=== PATIENT | male | born 1960 | race Caucasian/White ===

== ENCOUNTER → 2018-02-06 | Outpatient (REF) | payer OTHER ==
[2018-02-06 16:44] LABS: BASO # 0.1 10^3/uL (0.0-0.2); BASO % 0.7 % (0.0-1.0); EOS # 0.2 10^3/uL (0.0-0.50); EOS % 2.6 % (0.0-3.0); HEMOGLOBIN 14.5 g/dl (13.5-17.5); IMMATURE GRANULOCYTE % 0.1 % (0-3.0); LYMPH # 1.9 10^3/uL (1.5-4.5); LYMPH % 25.6 % (24.0-44.0); MEAN CORPUSCULAR HEMOGLOBIN 31.7 pg (27.0-33.0); MEAN CORPUSCULAR HGB CONC 35.4 g/dl (32.0-36.5); MEAN CORPUSCULAR VOLUME 89.7 fl (80.0-96.0); MONO # 0.5 10^3/uL (0.0-0.8); MONO % 6.8 % (0.0-5.0); NEUTROPHILS # 4.7 10^3/uL (1.8-7.7); NEUTROPHILS % 64.2 % (36.0-66.0); PLATELET COUNT, AUTOMATED 215 10^3/uL (150-450); RED BLOOD COUNT 4.57 10^6/uL (4.30-6.10); RED CELL DISTRIBUTION WIDTH 11.9 % (11.5-14.5); WHITE BLOOD COUNT 7.3 10^3/uL (4.0-10.0)
[2018-02-06 17:05] LABS: ALBUMIN/GLOBULIN RATIO 1.43 (1.00-1.93); ALKALINE PHOSPHATASE 61 U/L (45-117); ALT/SGPT 49 U/L (12-78); ANION GAP 5 MEQ/L (8-16); AST/SGOT 24 U/L (7-37); BILIRUBIN,TOTAL 0.6 MG/DL (0.2-1.0); BLOOD UREA NITROGEN 18 MG/DL (7-18); CALCIUM LEVEL 9.2 MG/DL (8.5-10.1); CARBON DIOXIDE LEVEL 32 MEQ/L (21-32); CHLORIDE LEVEL 106 MEQ/L (98-107); CHOLESTEROL LEVEL 155 MG/DL (<200); CHOLESTEROL RISK RATIO 3.604 (<5); CREATININE FOR GFR 0.95 MG/DL (0.70-1.30); GLOMERULAR FILTRATION RATE > 60.0 (>56); GLUCOSE, FASTING 104 MG/DL (70-100); HDL CHOLESTEROL 43 MG/DL (>40); LDL CHOLESTEROL 66.4 MG/DL (<100); NON-HDL-C 112 MG/DL; POTASSIUM SERUM 4.2 MEQ/L (3.5-5.1); SODIUM LEVEL 143 MEQ/L (136-145); TOTAL PROTEIN 6.8 GM/DL (6.4-8.2); TRIGLYCERIDES LEVEL 228 MG/DL (<150)
[2018-02-06 17:43] LABS: ESTIMATED AVERAGE GLUCOSE 123 MG/DL (60-110); HEMOGLOBIN A1c 5.9 %
[2018-02-09 00:06] LABS: Lyme Disease IgG/IgM Antibodie <0.91 ISR (0.00-0.90); Lyme Disease IgM Ab Quantitati <0.80 index (0.00-0.79)
== END ==
LOC: M SFHCPLAZ 14:58
DX: S30.860A Insect bite (nonvenomous) of lower back and pelvis, initial encounter (principal); I10 Essential (primary) hypertension; E66.9 Obesity, unspecified; W57.XXXA Bitten or stung by nonvenomous insect and other nonvenomous arthropods, initial encounter; Y92.89 Other specified places as the place of occurrence of the external cause
CPT/HCPCS: 80053

== ENCOUNTER → 2018-02-08 | Outpatient (REF) | payer SELFPAY ==
[2018-02-08 17:47] LABS: CHOLESTEROL LEVEL 173 MG/DL (<200); CPK CREATINE PHOSPHOKINASE 139 U/L (39-308); HDL CHOLESTEROL 49 MG/DL (>40); LDL CHOLESTEROL 89.4 MG/DL (<100); NON-HDL-C 124 MG/DL; TRIGLYCERIDES LEVEL 173 MG/DL (<150); TROPONIN I < 0.02 NG/ML (< 0.10)
[2018-02-08 17:48] LABS: CK-MB VALUE MASS 1.4 NG/ML (<3.6)
[2018-02-11 10:19] LABS: HEPATITIS C VIRUS ABY INDEX < 0.0 INDEX (<0.8)
== END ==
LOC: M LABDRAWP 16:56
DX: Z11.59 Encounter for screening for other viral diseases (principal); I10 Essential (primary) hypertension; Z13.220 Encounter for screening for lipoid disorders
CPT/HCPCS: 82550

== ENCOUNTER → 2018-02-14 | Outpatient (CLI) | payer SELFPAY | LOC: M RAD 06:34 | DX: I10 Essential (primary) hypertension (principal) ==

== ENCOUNTER → 2018-02-15 | Outpatient (REF) | payer SELFPAY, OTHER ==
[2018-02-15 20:37] LABS: INR 0.92; PARTIAL THROMBOPLASTIN TIME 29.3 SECONDS (26.8-37.9); PROTHROMBIN TIME 12.4 SECONDS (12.4-14.5)
== END ==
LOC: M SFHCPLAZ 16:51
DX: I25.118 Atherosclerotic heart disease of native coronary artery with other forms of angina pectoris (principal)

== ENCOUNTER → 2018-09-30 | Outpatient (REF) | payer OTHER, SELFPAY ==
[2018-09-30 18:51] LABS: HEMOGLOBIN A1c 6.2 %
[2018-09-30 19:03] LABS: ALBUMIN 4.1 GM/DL (3.2-5.2); ALT/SGPT 65 U/L (12-78); BILIRUBIN,TOTAL 0.7 MG/DL (0.2-1.0); BLOOD UREA NITROGEN 16 MG/DL (7-18); CALCIUM LEVEL 9.2 MG/DL (8.5-10.1); CARBON DIOXIDE LEVEL 31 MEQ/L (21-32); CHLORIDE LEVEL 102 MEQ/L (98-107); CREATININE FOR GFR 1.02 MG/DL (0.70-1.30); GLOMERULAR FILTRATION RATE > 60.0 (>56); GLUCOSE, FASTING 77 MG/DL (70-100); POTASSIUM SERUM 4.5 MEQ/L (3.5-5.1); SODIUM LEVEL 140 MEQ/L (136-145); TOTAL PROTEIN 7.3 GM/DL (6.4-8.2)
== END ==
LOC: M SFHCPLAZ 15:59
PROVIDERS: ATTEND Physician Assistant Medical
DX: R73.01 Impaired fasting glucose (principal)

== ENCOUNTER → 2019-04-24 | Outpatient (REF) | payer OTHER ==
[2019-04-24 11:46] LABS: BASO % 0.5 % (0.0-1.0); EOS # 0.2 10^3/uL (0.0-0.50); EOS % 2.3 % (0.0-3.0); HEMATOCRIT 39.8 % (42.0-52.0); HEMOGLOBIN 13.9 g/dl (13.5-17.5); LYMPH % 27.3 % (24.0-44.0); MEAN CORPUSCULAR HEMOGLOBIN 32.8 pg (27.0-33.0); MEAN CORPUSCULAR HGB CONC 34.9 g/dl (32.0-36.5); MEAN CORPUSCULAR VOLUME 93.9 fl (80.0-96.0); MONO # 0.5 10^3/uL (0.0-0.8); MONO % 6.6 % (0.0-5.0); NEUTROPHILS # 4.6 10^3/uL (1.8-7.7); NEUTROPHILS % 62.9 % (36.0-66.0); PLATELET COUNT, AUTOMATED 202 10^3/uL (150-450); RED BLOOD COUNT 4.24 10^6/uL (4.30-6.10); WHITE BLOOD COUNT 7.3 10^3/uL (4.0-10.0)
[2019-04-24 12:16] LABS: ALBUMIN 3.8 GM/DL (3.2-5.2); ALT/SGPT 57 U/L (12-78); BILIRUBIN,TOTAL 0.5 MG/DL (0.2-1.0); BLOOD UREA NITROGEN 17 MG/DL (7-18); CALCIUM LEVEL 9.2 MG/DL (8.5-10.1); CARBON DIOXIDE LEVEL 30 MEQ/L (21-32); CHLORIDE LEVEL 105 MEQ/L (98-107); CHOLESTEROL LEVEL 166 MG/DL (<200); CHOLESTEROL RISK RATIO 4.256 (<5); CREATININE FOR GFR 1.09 MG/DL (0.70-1.30); FREE T4 0.92 NG/DL (0.76-1.46); GLOMERULAR FILTRATION RATE > 60.0 (>56); GLUCOSE, FASTING 98 MG/DL (70-100); HDL CHOLESTEROL 39 MG/DL (>40); HEMOGLOBIN A1c 6.8 %; LDL CHOLESTEROL 74 MG/DL (<100); NON-HDL-C 127 MG/DL; POTASSIUM SERUM 4.2 MEQ/L (3.5-5.1); SODIUM LEVEL 141 MEQ/L (136-145); TOTAL PROTEIN 6.9 GM/DL (6.4-8.2); TRIGLYCERIDES LEVEL 263 MG/DL (<150)
== END ==
LOC: M SFHCPLAZ 09:55
PROVIDERS: ATTEND Physician Assistant Medical
DX: I10 Essential (primary) hypertension (principal); R73.01 Impaired fasting glucose; Z13.220 Encounter for screening for lipoid disorders; E66.01 Morbid (severe) obesity due to excess calories; Z12.5 Encounter for screening for malignant neoplasm of prostate; Z12.11 Encounter for screening for malignant neoplasm of colon

== ENCOUNTER → 2019-09-01 | Outpatient (REF) | payer OTHER ==
[2019-09-01 10:21] LABS: BASO # 0.1 10^3/uL (0.0-0.2); BASO % 0.9 % (0.0-1.0); EOS # 0.2 10^3/uL (0.0-0.5); EOS % 2.4 % (0.0-3.0); HEMATOCRIT 42.4 % (42.0-52.0); HEMOGLOBIN 14.6 g/dl (13.5-17.5); LYMPH % 25.1 % (24.0-44.0); MEAN CORPUSCULAR HEMOGLOBIN 31.9 pg (27.0-33.0); MEAN CORPUSCULAR HGB CONC 34.4 g/dl (32.0-36.5); MEAN CORPUSCULAR VOLUME 92.8 fl (80.0-96.0); MONO # 0.4 10^3/uL (0.0-0.8); MONO % 5.4 % (0.0-5.0); NEUTROPHILS # 5.3 10^3/uL (1.5-8.5); NEUTROPHILS % 65.7 % (36.0-66.0); PLATELET COUNT, AUTOMATED 224 10^3/uL (150-450); RED BLOOD COUNT 4.57 10^6/uL (4.30-6.10)
[2019-09-01 10:36] LABS: ALBUMIN 3.9 GM/DL (3.2-5.2); ALT/SGPT 72 U/L (12-78); BILIRUBIN,TOTAL 0.7 MG/DL (0.2-1.0); BLOOD UREA NITROGEN 17 MG/DL (7-18); CALCIUM LEVEL 10.4 MG/DL (8.5-10.1); CARBON DIOXIDE LEVEL 33 MEQ/L (21-32); CHLORIDE LEVEL 101 MEQ/L (98-107); CREATININE FOR GFR 1.16 MG/DL (0.70-1.30); GLOMERULAR FILTRATION RATE > 60.0 (>56); GLUCOSE, FASTING 206 MG/DL (70-100); POTASSIUM SERUM 4.3 MEQ/L (3.5-5.1); SODIUM LEVEL 140 MEQ/L (136-145); TOTAL PROTEIN 7.3 GM/DL (6.4-8.2)
[2019-09-01 10:59] LABS: HEMOGLOBIN A1c 6.8 %
== END ==
LOC: M SFHCPLAZ 08:18
PROVIDERS: ATTEND Physician Assistant Medical
DX: R73.01 Impaired fasting glucose (principal); I10 Essential (primary) hypertension

== ENCOUNTER → 2020-10-25 | Outpatient (REF) | payer OTHER ==
[2020-10-25 11:13] LABS: BASO # 0.1 10^3/uL (0.0-0.2); BASO % 0.8 % (0.0-1.0); EOS # 0.2 10^3/uL (0.0-0.5); EOS % 2.8 % (0.0-3.0); HEMATOCRIT 43.4 % (42.0-52.0); HEMOGLOBIN 14.7 g/dl (13.5-17.5); LYMPH # 1.9 10^3/uL (1.5-5.0); LYMPH % 29.5 % (24.0-44.0); MEAN CORPUSCULAR HEMOGLOBIN 31.1 pg (27.0-33.0); MEAN CORPUSCULAR HGB CONC 33.9 g/dl (32.0-36.5); MEAN CORPUSCULAR VOLUME 91.8 fl (80.0-96.0); MONO # 0.5 10^3/uL (0.0-0.8); MONO % 7.7 % (0.0-5.0); NEUTROPHILS # 3.8 10^3/uL (1.5-8.5); NEUTROPHILS % 58.9 % (36.0-66.0); PLATELET COUNT, AUTOMATED 199 10^3/uL (150-450); RED BLOOD COUNT 4.73 10^6/uL (4.30-6.10); WHITE BLOOD COUNT 6.5 10^3/uL (4.0-10.0)
[2020-10-25 11:45] LABS: ALBUMIN 4.1 GM/DL (3.2-5.2); ALT/SGPT 56 U/L (12-78); BILIRUBIN,TOTAL 0.4 MG/DL (0.2-1.0); BLOOD UREA NITROGEN 21 MG/DL (7-18); CALCIUM LEVEL 10.2 MG/DL (8.5-10.1); CARBON DIOXIDE LEVEL 31 MEQ/L (21-32); CHLORIDE LEVEL 104 MEQ/L (98-107); CHOLESTEROL LEVEL 167 MG/DL (<200); CREATININE FOR GFR 1.15 MG/DL (0.70-1.30); GLOMERULAR FILTRATION RATE > 60.0 (>56); GLUCOSE, FASTING 119 MG/DL (70-100); HDL CHOLESTEROL 46 MG/DL (>40); LDL CHOLESTEROL 85 MG/DL (<100); NON-HDL-C 121 MG/DL; POTASSIUM SERUM 4.7 MEQ/L (3.5-5.1); SODIUM LEVEL 141 MEQ/L (136-145); TOTAL PROTEIN 7.1 GM/DL (6.4-8.2); TRIGLYCERIDES LEVEL 180 MG/DL (<150)
[2020-10-25 11:55] LABS: HEMOGLOBIN A1c 6.1 %
== END ==
LOC: M SFHCPLAZ 08:32
PROVIDERS: ATTEND Physician Assistant Medical
DX: I10 Essential (primary) hypertension (principal); E83.52 Hypercalcemia; E11.9 Type 2 diabetes mellitus without complications; Z13.220 Encounter for screening for lipoid disorders; Z12.5 Encounter for screening for malignant neoplasm of prostate
CPT/HCPCS: 36415; 80053; 80061; 83036; 85025; G0103

== ENCOUNTER → 2021-05-11 | Outpatient (CLI) | payer SELFPAY ==
[2021-05-11 10:44] LABS: BASO # 0.1 10^3/uL (0.0-0.2); EOS # 0.2 10^3/uL (0.0-0.5); EOS % 2.3 % (0.0-3.0); HEMATOCRIT 42.6 % (42.0-52.0); HEMOGLOBIN 14.7 g/dl (13.5-17.5); LYMPH % 26.1 % (24.0-44.0); MEAN CORPUSCULAR HEMOGLOBIN 31.5 pg (27.0-33.0); MEAN CORPUSCULAR HGB CONC 34.5 g/dl (32.0-36.5); MEAN CORPUSCULAR VOLUME 91.4 fl (80.0-96.0); MONO # 0.5 10^3/uL (0.0-0.8); NEUTROPHILS % 64.2 % (36.0-66.0); PLATELET COUNT, AUTOMATED 217 10^3/uL (150-450); RED BLOOD COUNT 4.66 10^6/uL (4.30-6.10); WHITE BLOOD COUNT 7.7 10^3/uL (4.0-10.0)
[2021-05-11 11:30] LABS: ALT/SGPT 83 U/L (12-78); BILIRUBIN,TOTAL 0.4 MG/DL (0.2-1.0); BLOOD UREA NITROGEN 19 MG/DL (7-18); CALCIUM LEVEL 9.7 MG/DL (8.5-10.1); CARBON DIOXIDE LEVEL 31 MEQ/L (21-32); CHLORIDE LEVEL 99 MEQ/L (98-107); CREATININE FOR GFR 1.08 MG/DL (0.70-1.30); GLOMERULAR FILTRATION RATE > 60.0 (>56); GLUCOSE, FASTING 211 MG/DL (70-100); SODIUM LEVEL 137 MEQ/L (136-145); TOTAL PROTEIN 7.5 GM/DL (6.4-8.2)
== END ==
LOC: M PLALAB 08:46
PROVIDERS: ATTEND Physician Assistant Medical
DX: Z87.448 Personal history of other diseases of urinary system (principal)

== ENCOUNTER → 2021-06-07 | Outpatient (CLI) | payer SELFPAY ==
--- NOTE | 2021-06-07 10:02 | REP ---
INDICATION: ELEVATED LFT'S COMPARISON: None. TECHNIQUE: Real time castillo scale ultrasound examination using curved array transducer. FINDINGS: Liver demonstrates significant increased echotexture with poor through transmission suggesting fatty infiltration. Subtle underlying abnormalities cannot be excluded. Gallbladder is normal and without gallstones, wall thickening, or pericholecystic fluid. No obvious biliary ductal dilatation is appreciated. The right kidney is normal in reniform shape without hydronephrosis and measures 13.1 x 6.7 x 5.1 cm. No ascites. IMPRESSION: Limited examination due to significant hepatosteatosis. <Electronically signed by Filippo Quintanilla > 06/07/21 0961
== END ==
LOC: M RAD 09:15
PROVIDERS: ATTEND Physician Assistant Medical
DX: R94.5 Abnormal results of liver function studies (principal); K76.0 Fatty (change of) liver, not elsewhere classified

== ENCOUNTER 2021-06-15 16:08 | Inpatient (IN) | payer SELFPAY ==
[~2021-06-15] VITALS: Ht 182.9 cm; Wt 129.3 kg
[2021-06-15] MEDS ORDERED: METF-838 PO (16:16)
[2021-06-15] MEDS ORDERED: CHLO125TA PO (16:16)
[2021-06-15] MEDS ORDERED: CARV25TA PO (16:16)
[2021-06-15] MEDS ORDERED: LOSA25TA14 PO (16:16)
[2021-06-15] MEDS ORDERED: ISOVUE-370 76% 100ML VIAL As Ordered ONE (17:13)
[2021-06-15] MEDS ORDERED: ACETAMINOPHEN 500 MG TAB PO ONE (17:50)
[2021-06-15] MEDS ORDERED: METOCLOPRAMIDE INJ 10MG/2ML VIAL (J2765 PER 1) IV ONE (17:50)
[2021-06-15] MEDS ORDERED: NS 1,000 ML IV ONE (17:50)
[2021-06-15] MEDS ORDERED: diphenhydrAMINE 50MG/ML VIAL (J1200) IV ONE (17:50)
--- NOTE | 2021-06-15 18:27 | REPVR ---
PROCEDURE INFORMATION: Exam: CT Head Without Contrast Exam date and time: 06/15/2021 5:20 PM Age: 60 years old Clinical indication: Pain; Headache; Additional info: Severe R frontal pain, fmh cva/brain aneurysm, vision proble TECHNIQUE: Imaging protocol: Computed tomography of the head without contrast. Radiation optimization: All CT scans at this facility use at least one of these dose optimization techniques: automated exposure control; mA and/or kV adjustment per patient size (includes targeted exams where dose is matched to clinical indication); or iterative reconstruction. COMPARISON: No relevant prior studies available. FINDINGS: Brain: There is a large area of low density in the right posterior temporal, occipital and parietal cortices likely due to acute infarction. There are less prominent patchy areas of hypodensity in the centrum semiovale possibly due to microangiopathy. There is no acute intracranial hemorrhage. Cerebral ventricles: No ventriculomegaly. Paranasal sinuses: Mild mucoperiosteal thickening and fluid in the paranasal sinuses. Mastoid air cells: The middle ear cavities and mastoid air cells are clear. Bones/joints: Unremarkable. No acute fracture. Soft tissues: Unremarkable. IMPRESSION: Probable acute infarction right posterior cerebral artery distribution. However there is an area of increased density within the hypodensity and an underlying tumor is possible therefore suggest contrast enhanced CT or MRI for further evaluation. Electronically signed by: Kathia Garrett On 06/15/2021 18:26:58 PM
--- NOTE | 2021-06-15 18:33 | REPVR ---
PROCEDURE INFORMATION: Exam: CT Angiography Head With Contrast, Arteriography Exam date and time: 06/15/2021 5:20 PM Age: 60 years old Clinical indication: Pain; Headache; Additional info: Severe R frontal pain, fmh brain aneurysm, CVA, vision prob TECHNIQUE: Imaging protocol: Computed tomography angiography of the head with contrast. Exam focused on the arteries. 3D rendering (Not supervised by radiologist): MIP and/or 3D reconstructed images were created by the technologist. Radiation optimization: All CT scans at this facility use at least one of these dose optimization techniques: automated exposure control; mA and/or kV adjustment per patient size (includes targeted exams where dose is matched to clinical indication); or iterative reconstruction. Contrast material: ISOVUE 370; Contrast volume: 75 ml; Contrast route: INTRAVENOUS (IV); COMPARISON: No relevant prior studies available. FINDINGS: ANTERIOR CIRCULATION: Right internal carotid artery: Unremarkable. Intracranial segment is patent with no significant stenosis. No aneurysm. Right middle cerebral artery: Unremarkable. No occlusion or significant stenosis. No aneurysm. Right anterior cerebral artery: Unremarkable. No occlusion or significant stenosis. No aneurysm. Left internal carotid artery: Unremarkable. Intracranial segment is patent with no significant stenosis. No aneurysm. Left middle cerebral artery: Unremarkable. No occlusion or significant stenosis. No aneurysm. Left anterior cerebral artery: Unremarkable. No occlusion or significant stenosis. No aneurysm. POSTERIOR CIRCULATION: Right vertebral artery: Unremarkable. No occlusion or significant stenosis. No aneurysm. Left vertebral artery: Unremarkable. No occlusion or significant stenosis. No aneurysm. Basilar artery: Unremarkable. No occlusion or significant stenosis. No aneurysm. Right posterior cerebral artery: Unremarkable. No occlusion or significant stenosis. No aneurysm. Left posterior cerebral artery: Unremarkable. No occlusion or significant stenosis. No aneurysm. 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 Cerebral ventricles: No ventriculomegaly. Bones/joints: Unremarkable. No acute fracture. Soft tissues: Unremarkable. IMPRESSION: No large vessel stenosis or occlusion however there appears to be an acute infarction in the right posterior temporal, occipital and parietal lobes. No mass is seen in the right parietal and occipital lobes to suggest an underlying lesion however only early arterial phase is included on this examination. Electronically signed by: Kathia Garrett On 06/15/2021 18:32:46 PM
[2021-06-15] MEDS ORDERED: ASPIRIN 325 MG TAB PO ONE (18:40)
[2021-06-15 19:33] LABS: RSV AMPLIFICATION NEGATIVE (NEGATIVE)
[2021-06-15] MEDS ORDERED: BETA5CR TOP (20:40)
[2021-06-15] MEDS ORDERED: VITA500T40 PO (20:40)
[2021-06-15] MEDS ORDERED: FISH1000 PO (20:40)
[2021-06-15] MEDS ORDERED: RA T500C2 PO (20:40)
[2021-06-15] MEDS ORDERED: D 1010004 PO (20:40)
[2021-06-15] MEDS ORDERED: HOME MED LIST COMPLETE! XX SCH (20:45)
[2021-06-15] MEDS ORDERED: NS 1,000 ML IV SCH (21:30)
[2021-06-15] MEDS ORDERED: ONDANSETRON 4MG/2ML VIAL IV PRN (21:35)
[2021-06-15] MEDS ORDERED: ACETAMINOPHEN TAB 650MG DOSE (2X325MG) PO PRN (21:35)
[2021-06-15 22:04] VITALS: BP 142/99
[2021-06-15 22:13] LABS: BASO # 0.1 10^3/uL (0.0-0.2); BASO % 0.8 % (0.0-1.0); EOS # 0.2 10^3/uL (0.0-0.5); EOS % 2.3 % (0.0-3.0); HEMATOCRIT 41.3 % (42.0-52.0); HEMOGLOBIN 14.5 g/dl (13.5-17.5); LYMPH # 2.3 10^3/uL (1.5-5.0); LYMPH % 29.4 % (24.0-44.0); MEAN CORPUSCULAR HEMOGLOBIN 32.2 pg (27.0-33.0); MEAN CORPUSCULAR HGB CONC 35.1 g/dl (32.0-36.5); MEAN CORPUSCULAR VOLUME 91.8 fl (80.0-96.0); MONO # 0.6 10^3/uL (0.0-0.8); MONO % 7.2 % (2.0-8.0); NEUTROPHILS # 4.8 10^3/uL (1.5-8.5); WHITE BLOOD COUNT 7.9 10^3/uL (4.0-10.0)
[2021-06-15 22:24] LABS: INR 0.92; PROTHROMBIN TIME 12.7 SECONDS (12.7-14.5)
[2021-06-15 22:25] LABS: PARTIAL THROMBOPLASTIN TIME 28.9 SECONDS (25.9-37.0)
--- NOTE | 2021-06-15 22:28 | HPEPDOC ---
General Date of Admission Jun 15, 2021 at 20:58 Date of Service: Jun 15, 2021 Attending Physician: CHRIS GONZALEZ MD Chief Complaint The patient is a 60-year-old male admitted with a reason for visit of Acute Cerebral Infarction, Alteration In Vision. History of Present Illness Chief complaint: headache and blurry vision HISTORY OF PRESENT ILLNESS: This is a 60-year-old obese male who presents to [facility] ER with chief complaint of headache and blurry vision. Patient states that he had a sudden onset of a right temporal headache with associated blurry vision/tunnel vision and loss of peripheral vision when he bent down to get food from his refrigerator last night. Patient states the headache is localized specifically in the right temporal region and has not been getting better since last night. His vision is still blurry however his peripheral vision has since resolved. He tried taking 2 baby aspirin's last night tried falling back asleep but symptoms still persist. He denies any weakness presyncope syncope or loss of consciousness or drooping in one side of his body. He did report some dizziness associated with that episode last night but denies any dizziness currently. Patient also denies any chest pain palpitations shortness of breath cough. PAST MEDICAL HISTORY: Essential hypertension CO status post coronary angio with no stents placed PAST SURGICAL HISTORY: Tendon reattachment on his right middle finger SOCIAL HISTORY: Denies EtOH or illicit drug use. Denies any cocaine use Body not current smoker. 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 COPD Father from triple a. History of hypertension CAD REVIEW OF SYSTEMS: General: Denies fever, shaking chills, unintentional weight loss HEENT: Sharp headache located in right temporal region, tunnel vision, blurry vision with initial loss of peripheral vision which is now normalized. Denies hearing loss nasal congestion or sore throat, hematemesis epistaxis. Heart: Denies chest pain or chest pressure or discomfort, or palpitations, or lower extremity edema Pulm: Denies cough or sputum production or shortness of breath GI: Denies nausea vomiting diarrhea abdominal pain or bloody stools Psych: Denies sadness or loss of interest in doing things, no thoughts of self- harm or suicidal ideation PHYSICAL EXAM: VS please see below: GENERAL: Obese male, well-developed, well-nourished in no apparent distress. AAOx3 NEURO: Cranial nerves conductedwithin normal limits strength 5 out of 5 throughout sensation intact throughout. Downgoing toes bilaterally. Reflexes 2 out of 4 throughout. HEENT: Head is normocephalic and atraumatic. Extraocular muscles are intact. Pupils are constricted but equal, round, and reactive to light and accommoda tion. Nares appears normal. Moist mucous membranes. Mallampati score of 3. PULM: Clear to auscultation bilaterally. No wheezing, rhonchi or rales appreciated.. CARDIO: Normal S1, S2. no significant murmurs, gallops, rubs or clicks. 2+ pitting edema bilateral lower extremities extending up to the knee. Unable to appreciate carotid bruits. Unable to appreciate JVP with hepatojugular reflux. ABDOMEN: Obese, soft, nontender, and nondistended. Normal bowel sounds. No significant organomegaly appreciated. EXTREMITIES: No cyanosis, clubbing, rash, lesions. PSYCH: Appropriate mood and affect. IMAGING: CT head without contrast Impression: Probable acute infarction right posterior cerebral artery distribution. Area of increased density within the hypodensity and an underlying tumor is possiblesuggest contrast-enhanced CT or MRI for further evaluation. 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 No large vessel stenosis or occlusion. No masses seen in the right parietal or occipital lobes to suggest an underlying lesion however only early arterial phase included in this examination. MRI and MRA brain ordered pending results ASSESSMENT AND PLAN: This is a 60-year-old obese gentleman who presents to the ER with chief complaint of sharp right-sided headache and blurry vision with loss of peripheral vision since last night. His headache specifically in the right restoration region persists. His blurry vision also persists however his peripheral vision has recovered. In the ER he was loaded with aspirin CT brain and CTA brain showed findings consistent with acute CVA and MRI MRA brain was ordered and results currently. Patient was asked to be admitted under the hospitalist team for further management of care. Acute CVA Admit patient with telemetry for 48 hours to monitor for arrhythmias. Neurochecks every 2 hours for the first 24 hours and every 4 hours.. I have put in nursing order to call if patient has neurological changes or if his temperature is greater than 100.4 Fahrenheit, SBP greater than 200 or less than 120, heart rate greater than 100. Patient is bedrest until PT assessment is done then he can mobilize per PT recs. He is on strict fall precautions currently. Titrate oxygen to oxygen of the above 94% Patient is to be n.p.o. until he is evaluated for speech and swallow study and then can advance diet as tolerated; in the meantime we will do FSBS every 6 hours while n.p.o. once he has a diet continue before meals and at bedtime. I will start him on IV maintenance fluids normal saline at 75 cc/h while he is n.p.o. Patient was loaded with aspirin I will start him on baby aspirin daily with 75 mg Plavix. I will add atorvastatin 40 to his regimen and order for a lipid panel Acetaminophen prn for pain or fever and Zofran prn for nausea Pending echo with bubble study. Essential hypertension I will hold all his home blood pressure medications and let his BP autoregulate for the first 24 hours/permissive hypertension. Then I want to optimize his SBP less than 180 preferably. DVT prophylaxis Heparin CODE STATUS full Home Medications Scheduled Carvedilol (Carvedilol) 25 Mg Tablet, 25 MG PO BID, (Reported) Chlorthalidone (Chlorthalidone) 25 Mg Tablet, 25 MG PO DAILY, (Reported) Cholecalciferol (Vitamin D3) (Vitamin D3) 25 Mcg Capsule, 25 MCG PO DAILY, (Reported) Cyanocobalamin (Vitamin B-12) (Vitamin B-12) 500 Mcg Tablet, 500 MCG PO DAILY, (Reported) Losartan Potassium (Losartan Potassium) 25 Mg Tablet, 25 MG PO DAILY, (Reported) Metformin HCl (Metformin HCl ER) 500 Mg Tab.er.24h, 500 MG PO BID, (Reported) Ralph-3 Fatty Acids/Fish Oil (Fish Oil 1,000 mg Capsule) 1 Each Capsule, 1,000 MG PO DAILY, (Reported) Turmeric Root Extract (Turmeric) 500 Mg Capsule, 500 MG PO DAILY, (Reported) Scheduled PRN Betamethasone Dip (Betamethasone Dipropionate) 15 Gm Oint...g., 1 APLCT TOP BID PRN for RASH, (Reported) RIGHT HAND Allergies Coded Allergies: No Known Allergies (Unverified , 06/15/21) A-FIB/CHADSVASC A-FIB History Current/History of A-Fib/PAF?: No Current PO Anticoag Therapy: Yes Vital Signs Vital Signs Date Time Temp Pulse Resp B/P (MAP) Pulse Ox O2 Delivery O2 Flow Rate FiO2 06/15/21 18:35 97.7 74 16 132/85 (101) 97 Room Air Laboratory Data Labs 24H Laboratory Tests 2 06/15/21 18:46: Coronavirus (COVID-19)(PCR) NEGATIVE, Influenza Type A (RT-PCR) NEGATIVE, Influenza Type B (RT-PCR) NEGATIVE, Respiratory Syncytial Virus (PCR) NEGATIVE 06/15/21 19:44: Erythrocyte Sedimentation Rate 29H, C-Reactive Protein, Quantitative 1.26H 06/15/21 22:01: CBC/BMP Plan / VTE VTE Prophylaxis Ordered?: Yes GME ATTESTATION GME ATTESTATION My faculty preceptor for this patient encounter was physically present during the encounter and was fully available. All aspects of the patient interview, examination, medical decision making process, and medical care plan development were reviewed and approved by the faculty preceptor. The faculty preceptor is aware and concurs with the plan as stated in the body of this note and will attest to such by his/her cosignature. ATTENDING NOTE IGuillermina, have independently examined this patient and performed my own physical exam, as well as reviewed the documentation and edited where necessary. I have discussed in detail with the resident / student the findings and plan of treatment as documented by the resident / student and edited their note. I agree with their findings and treatment plan and have edited their documentation. I will continue to follow the patient during this hospital stay. Elaina Aguilar DO Jun 15, 2021 22:28 CHRIS GONZALEZ MD Jun 19, 2021 06:34
[2021-06-15 22:30] VITALS: O2SAT 95
[2021-06-15 22:45] VITALS: O2SAT 95
[2021-06-15 22:49] LABS: ALBUMIN 3.7 GM/DL (3.2-5.2); ALT/SGPT 68 U/L (12-78); BILIRUBIN,DIRECT 0.2 MG/DL (0.0-0.2); BILIRUBIN,TOTAL 0.6 MG/DL (0.2-1.0); BLOOD UREA NITROGEN 17 MG/DL (7-18); CALCIUM LEVEL 8.8 MG/DL (8.5-10.1); CARBON DIOXIDE LEVEL 27 MEQ/L (21-32); CHLORIDE LEVEL 105 MEQ/L (98-107); CHOLESTEROL LEVEL 145 MG/DL (<200); CHOLESTEROL RISK RATIO 3.815 (<5); CK-MB VALUE MASS 1.5 NG/ML (<3.6); CPK CREATINE PHOSPHOKINASE 91 U/L (39-308); CREATININE FOR GFR 1.12 MG/DL (0.70-1.30); GLOMERULAR FILTRATION RATE > 60.0 (>56); GLUCOSE, FASTING 95 MG/DL (70-100); HDL CHOLESTEROL 38 MG/DL (>40); LDL CHOLESTEROL 69 MG/DL (<100); MB/CK RELATIVE INDEX 1.65 (< OR =4); NON-HDL-C 107 MG/DL; POTASSIUM SERUM 3.7 MEQ/L (3.5-5.1); SODIUM LEVEL 141 MEQ/L (136-145); TOTAL PROTEIN 6.9 GM/DL (6.4-8.2); TRIGLYCERIDES LEVEL 190 MG/DL (<150); TROPONIN I < 0.02 NG/ML (< 0.10)
[2021-06-15 23:00] VITALS: O2SAT 93
--- NOTE | 2021-06-15 23:08 | REPVR ---
PROCEDURE INFORMATION: Exam: MR Head Without Contrast Exam date and time: 06/15/2021 9:43 PM Age: 60 years old Clinical indication: Pain; Headache; Other: Acute infarct R post cerebral a, temporal, occipital, [place] TECHNIQUE: Imaging protocol: MR of the head without contrast. COMPARISON: CT Head without contrast 06/15/2021 5:17 PM FINDINGS: Brain: There is a right occipital cortical infarct. There is restricted diffusion within this infarct indicating recent, acute to subacute infarct. There also areas of hemorrhage within the infarct best seen on gradient echo images. This is the area slightly greater density on the CT. There is no extra-axial collection. There is no mass. There are no abnormal flow voids. Cerebral ventricles: There is no hydrocephalus. Bones/joints: Unremarkable. Paranasal sinuses: Mucosal thickening in the ethmoid and left frontal sinuses. Mastoid air cells: Normal as visualized. No mastoid effusion. Orbital cavity: Unremarkable. Soft tissues: Unremarkable. IMPRESSION: Subacute right occipital cortical infarct with area of hemorrhage within the infarct. Electronically signed by: Kobe Nguyen On 06/15/2021 23:08:07 PM
--- NOTE | 2021-06-15 23:10 | REPVR ---
PROCEDURE INFORMATION: Exam: MRA Head Without Contrast; Arteriography Exam date and time: 06/15/2021 9:43 PM Age: 60 years old Clinical indication: Pain; Headache; Additional info: Acute infarct R post cerebral a, temporal, occipital, [place] TECHNIQUE: Imaging protocol: Magnetic resonance angiography head without contrast. Exam focused on the arteries. COMPARISON: CT ANGIO HEAD 06/15/2021 5:17 PM FINDINGS: ANTERIOR CIRCULATION: Right internal carotid artery: Intracranial segment is patent with no significant stenosis. No aneurysm. Right middle cerebral artery: No occlusion or significant stenosis. No aneurysm. Right anterior cerebral artery: No occlusion or significant stenosis. No aneurysm. Left internal carotid artery: Intracranial segment is patent with no significant stenosis. No aneurysm. Left middle cerebral artery: No occlusion or significant stenosis. No aneurysm. Left anterior cerebral artery: No occlusion or significant stenosis. No aneurysm. POSTERIOR CIRCULATION: Right vertebral artery: No occlusion or significant stenosis. No aneurysm. Left vertebral artery: No occlusion or significant stenosis. No aneurysm. Basilar artery: No occlusion or significant stenosis. No aneurysm. Right posterior cerebral artery: No occlusion or significant stenosis. No aneurysm. No occlusion to correspond to finding of right occipital infarct on MRI Left posterior cerebral artery: No occlusion or significant stenosis. No aneurysm. IMPRESSION: No intracranial stenosis or occlusion Electronically signed by: Kobe Nguyen On 06/15/2021 23:10:41 PM
[2021-06-16] VITALS (27 sets, daily range): BP systolic 123–165; BP diastolic 60–100; O2SAT 90–95
[2021-06-16] MEDS ORDERED: HEPARIN SOD (PORCINE) 5000UNITS/ML 1ML VIAL/SYRINGE SQ SCH (06:00)
[2021-06-16 07:27] LABS: BASO # 0.1 10^3/uL (0.0-0.2); BASO % 0.7 % (0.0-1.0); EOS # 0.1 10^3/uL (0.0-0.5); EOS % 1.6 % (0.0-3.0); HEMATOCRIT 40.3 % (42.0-52.0); HEMOGLOBIN 14.1 g/dl (13.5-17.5); LYMPH # 1.5 10^3/uL (1.5-5.0); LYMPH % 21.5 % (24.0-44.0); MEAN CORPUSCULAR VOLUME 91.4 fl (80.0-96.0); MONO # 0.5 10^3/uL (0.0-0.8); MONO % 6.8 % (2.0-8.0); NEUTROPHILS # 4.7 10^3/uL (1.5-8.5); NEUTROPHILS % 69.1 % (36.0-66.0); PLATELET COUNT, AUTOMATED 197 10^3/uL (150-450); RED BLOOD COUNT 4.41 10^6/uL (4.30-6.10); WHITE BLOOD COUNT 6.8 10^3/uL (4.0-10.0)
[2021-06-16 07:51] LABS: BLOOD UREA NITROGEN 14 MG/DL (7-18); CALCIUM LEVEL 8.8 MG/DL (8.5-10.1); CARBON DIOXIDE LEVEL 27 MEQ/L (21-32); CHLORIDE LEVEL 104 MEQ/L (98-107); CREATININE FOR GFR 0.98 MG/DL (0.70-1.30); GLOMERULAR FILTRATION RATE > 60.0 (>56); GLUCOSE, FASTING 129 MG/DL (70-100); SODIUM LEVEL 139 MEQ/L (136-145)
--- NOTE | 2021-06-16 08:51 | REP ---
INDICATION: ICH. A cute tube right temporal occipital lobe infarction with hemorrhagic component seen on MRI study. COMPARISON: Comparison MRI study 06/15/[address] study 06/15/2021. TECHNIQUE: Helical scanning is acquired. 5 mm axial images were reformatted. Coronal MPR images were generated. FINDINGS: On today's CT images, there is a zone of subtly increased parenchymal attenuation within the infarct in the right posterior temporal and occipital lobe region. This corresponds with the area of hemosiderin blood breakdown signature on MRI study from the previous day. The attenuation in this portion of the infarct is slightly increased from yesterday's CT. This area measures 2.9 cm in greatest diameter. The size and overall distribution of the infarction has not changed. No midline shift is seen. No extra-axial fluid collection noted IMPRESSION: There is been a subtle increase in CT attenuation in a portion of the right temporal occipital lobe infarction corresponding to the area of parenchymal hemorrhage seen on yesterday's MRI study. Findings consistent with acute infarction with petechial hemorrhagic component. <Electronically signed by Se Gan > 06/16/21 0831
[2021-06-16] MEDS: CYANOCOBALAMIN 500 MCG TAB PO SCH (09:00)
[2021-06-16] MEDS ORDERED: FLUBLOK(EGG FREE)(QUAD)INFLUENZA VACC 0.5ML SYRINGE 18YRS & OLDER IM ONE (09:00)
[2021-06-16] MEDS ORDERED: ASPIRIN 81 MG CHEW TABLET PO SCH (09:00)
[2021-06-16] MEDS ORDERED: CLOPIDOGREL 75 MG TAB PO SCH (09:00)
[2021-06-16] MEDS: ATORVASTATIN 20 MG TAB PO SCH (09:00)
--- NOTE | 2021-06-16 13:48 | CR ---
CONSULTATION DATE: 06/16/2021 CHIEF COMPLAINT: Headache and vision change. HISTORY OF PRESENT ILLNESS: Mr. Tariq is a 60-year-old male with a past medical history of hypertension, CAD, hyperlipidemia, and diabetes who presented initially with complaints of headache and change in his vision. Patient states that he had bent down to pick something up on Sunday evening when he had sudden onset of severe pain in his right temporal region as well as blurry vision and almost tunnel vision with loss of peripheral vision. He tried taking two baby aspirins and going to bed to see if his symptoms would improve. However, when he woke up, he was still having the pain in his head as well as the blurry vision. He, therefore, presented to the ED for further evaluation. In the ED, patient's initial head CT was suggestive of acute CVA, and he was initially loaded with aspirin as well as Plavix. He then was ordered for an MRI of his brain as well which showed evidence of some hemorrhage. He was, therefore, transferred to the ICU for further management and monitoring. The patient this morning says the pain in his head has resolved when he is at rest. However, if he does bend over or do anything more strenuous, then he will have some of the pain in his head as well as some dizziness. He does report improvement in his vision, however, and that he is able to see things much more clearly with only minimal blurriness at this time. He otherwise has not had any symptoms of weakness since this has started. No symptoms of facial droop or difficulty speaking. He denies any chest pain. Has not had any symptoms of shortness of breath or cough. No abdominal pain. No nausea or vomiting. He does have history of some chronic lower extremity edema which he states is unchanged. PAST MEDICAL/SURGICAL HISTORY: 1. Hypertension. 2. CAD with prior cardiac cath but no stents. 3. Hyperlipidemia. 4. Tendon reattachment on his right middle finger. 5. Diabetes. SOCIAL HISTORY: Former smoker of two packs a day, quit in 1992. Denies any ETOH use. 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 Has no medical insurance. FAMILY HISTORY: Mother with history of COPD. Father with history of AAA, hypertension, and CAD. HOME MEDICATIONS: 1. Carvedilol. 2. Chlorthalidone. 3. Vitamin D. 4. Vitamin B12. 5. Losartan. 6. Metformin. 7. Fish oil. 8. Tumeric. ALLERGIES: No known drug allergies. PHYSICAL EXAMINATION: VITALS: Temperature 98.3, pulse 74, respirations 18, blood pressure 140/81, O2 sat 92 to 95% on room air. GENERAL: Patient is an obese male. He is sitting in the chair and is in no acute distress. He is alert and oriented x3 and is speaking in complete sentences with no difficulty with word finding. HEENT: Normocephalic/atraumatic. Pupils are equal and reactive to light bilaterally. Extraocular muscles are intact and normal accommodation. There is moist mucous membranes noted. Mallampati score of 3 to 4. Cranial nerves III to XII intact. NECK: Supple. Trachea is midline. No palpable cervical adenopathy. CARDIAC: Regular rate and rhythm. Normal S1 and S2. No significant murmurs auscultated. PULMONARY: Clear to auscultation bilaterally. No wheezing, rales, or rhonchi noted. ABDOMEN: Obese, soft, nontender, nondistended. No palpable masses. Normal bowel sounds. EXTREMITIES: There is +1 pitting edema in the bilateral lower extremities which patient reports is chronic. Strength is 5/5 in all four extremities. LABORATORY DATA: WBC 6.8, hemoglobin 14.1, platelets 197. Chemistry: Sodium 139, potassium 4.0, chloride 104, bicarb 27, BUN 14, creatinine 0.98, glucose 88. INR 0.92. IMAGING: CT head showed acute infarct in the right posterior cerebral artery distribution with an area of increased density within the hypodensity. CTA showed acute infarct in the right KNOTTER HAND branch distribution including posterior, temporal, occipital, and parietal lobes. No masses seen or large vessel stenosis or occlusion. MRI showed acute to subacute right occipital cortical infarct with areas of hemorrhage within the infarct. MRA showed no evidence of occlusion or stenosis, not even in the right posterior cerebral artery distribution. Head CT 06/16 showed an area of infarct in the right posterior temporal and occipital lobe region which is unchanged in size measuring 2.9 cm in greatest diameter. There is increased attenuation within that portion of infarct responding to the area of parenchymal hemorrhage on the MRI yesterday. ASSESSMENT/PLAN: Mr. Tariq is a 60-year-old male with a history of hypertension, hyperlipidemia, and diabetes who presented with complaints of new sudden onset right-sided headache and vision change. He was found to have evidence of an acute CVA in the right posterior temporal/occipital lobe with findings as well of acute petechial hemorrhage within that area of infarct. He initially was given aspirin loading and started on Plavix. He was transferred to the ICU after his MRI findings, and his antiplatelet medications were discontinued. 1. Patient is on neuro checks now q.1 hours. He is getting repeat CT of the head every six hours as per Neurology. a. Patient's antiplatelet medications are on hold currently. Neurology has been consulted and appreciate their recommendations. Neuro hand method lasting machine operator at the [facility] has also been consulted about possible transfer to their facility. However, there are no beds currently, and they recommended to continue monitoring him here as his neurologic exam has improved and his imaging has been stable this morning. b. Patient does notice improvement in his vision as well as in his headache. He does have pain, however, still when bending over and more strenuous activity. We did discuss with patient about the importance of head of bed elevation and to not have any straining. If he is having any straining even with bowel movements, then he may need a bowel regimen at that time. c. Would otherwise continue supportive measurements including avoidance of any hypotonic fluids and avoiding any hyponatremia or hypercapnia. Would get an ABG for evaluation. d. Would also continue monitoring his blood pressure and avoid any hypotension or severe hypertension with attempting to maintain systolic blood pressures of 140s to 160s. e. Patient has been ordered for a speech and swallow evaluation as well as an echo for bubble study for further evaluation. f. Continue the rest of his care for his hypertension as well as for his hyperlipidemia and diabetes as per primary team. 2. DVT prophylaxis. TEDS and SCDs. CODE STATUS: Full code. TOTAL CRITICAL CARE TIME SPENT NOT INCLUDING PROCEDURES: Approximately 1 hour and 30 minutes.
--- NOTE | 2021-06-16 14:52 | REPVR ---
PROCEDURE INFORMATION: Exam: CT Head Without Contrast Exam date and time: 06/16/2021 2:00 PM Age: 60 years old Clinical indication: Pain; Headache; Additional info: Ich TECHNIQUE: Imaging protocol: Computed tomography of the head without contrast. Radiation optimization: All CT scans at this facility use at least one of these dose optimization techniques: automated exposure control; mA and/or kV adjustment per patient size (includes targeted exams where dose is matched to clinical indication); or iterative reconstruction. COMPARISON: CT Head without contrast 06/16/2021 8:17 AM FINDINGS: Brain: There is continued evolution of right occipital subacute infarct with some superimposed hemorrhage. There is local mass effect without shift of midline structures. Cerebral ventricles: No ventriculomegaly. Paranasal sinuses: There is moderate left frontal sinus mucosal thickening. There is opacification of posterior ethmoid air cells. Mastoid air cells: Visualized mastoid air cells are well aerated. Bones/joints: Unremarkable. No acute fracture. Soft tissues: Unremarkable. IMPRESSION: Continued evolution of subacute right occipital lobe infarct with superimposed focal hemorrhage. Electronically signed by: Rebeca Garza On 06/16/2021 14:52:06 PM
[2021-06-16] MEDS ORDERED: FLUBLOK(EGG FREE)(QUAD)INFLUENZA VACC 0.5ML SYRINGE 18YRS & OLDER IM SCH (15:30)
[2021-06-16] MEDS ORDERED: GLUCOSE 4GM CHEW TABLET PO PRN (17:25)
[2021-06-16] MEDS ORDERED: DEXTROSE 50% 50 ML SYRINGE IV PRN (17:25)
[2021-06-16] MEDS ORDERED: GLUCAGON INJ 1MG VIAL SC PRN (17:25)
--- NOTE | 2021-06-16 17:27 | IPNPDOC ---
Text Note Date of Service The patient was seen on 06/16/21. 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 Patient initially presented to the emergency room on 06/13 2 PM in the emergency room, patient had a CT scan that revealed evidence of an right occipital lobe infarct. MRI was ordered by the ER provider. Patient was admitted to the hospitalist service for further evaluation and treatment I have assumed care for this patient at 7 AM. Upon my review of imaging MRI has revealed evidence of the right occipital lobe infarct with evidence of hemorr abbey. Patient was urgently transition to the ICU for every hour neuro checks, fabric worker foreman, and urology were called on consultation. I have contacted [facility] for transfer for a higher level of care. I discussed the case in detail with Dr. Carrion; neuro stroke attending, who reports that the findings of hemorrhage or petechial and do not necessitate transfer. He has reviewed images. I discussed the case in detail with Dr. Murillo; Neurosurgery at [facility]. He reports that if repeat CT imaging does not show any progression that a transfer would not be required. Patient was seen and examined at the bedside at multiple times throughout today. Patient reports a headache, but has reported that his vision has been better. He denies any nausea, vomiting, chest pain, shortness of breath or palpitations. Has not experienced any abdominal pain, diarrhea, or urinary discomfort. Objective: Vitals (See below) General: Sitting up, appears comfortable, AAOx3 HEENT: NC, AT, his pupils are equal, round and reactive bilaterally CVS: +S1S2 Lungs: Fair air entry b/l, -w/r/r Abdomen: Soft, ND, NT Extremities: - Edema, - Calf tenderness Neuro: 5/5 strength at upper / lower extremities bilaterally Imaging: Head CT 06/15: Probable acute infarction right posterior cerebral artery distribution. However there is an area of increased density within the hypodensity and an underlying tumor is possible therefore suggest contrast enhanced CT or MRI for further evaluation. CTA Head 06/15: No large vessel stenosis or occlusion however there appears to be an acute infarction in the right posterior temporal, occipital and parietal lobes. No mass is seen in the right parietal and occipital lobes to suggest an underlying lesion however only early arterial phase is included on this examination. MRA Brain 06/15: No intracranial stenosis or occlusion MRI Brain 06/15: Subacute right occipital cortical infarct with area of hemorrhage within the infarct. Head CT 06/16 - 744: There is been a subtle increase in CT attenuation in a portion of the right temporal occipital lobe infarction corresponding to the area of parenchymal hemorrhage seen on yesterday's MRI study. Findings consistent with acute infarction with petechial hemorrhagic component. Head CT 06/16 - 1399: Continued evolution of subacute right occipital lobe infarct with superimposed focal hemorrhage. Assessment and plan: Acute CVA at R occipital area with area of petechial hemorrhage - Clinically patient has reported a headache, but has reported improvement of his vision - He remains hemodynamically stable and afebrile - Physical does not reveal any focal neurologic deficits - Cardiac risk profile noted - Imaging noted above - c/w Atorvastatin - Aspirin and Plavix have been discontinued; no indication for dual antiplatelet therapy - ECHO complete - report pending; Will get Duplex US of carotid - Continue with frequent neurologic checks and serial CT imaging; will repeat CT scan tomorrow morning or sooner if there is any neurologic change - Consulted fabric worker foreman and neurologist for further recommendations - Discussed transfer to higher level of care with [facility] - refused acceptance / reported no requirement of transfer at this time HTN - Given above findings, will keep blood pressure less than 140 - Will reintroduce carvedilol alone with adjusted hold parameters DM2 - Will start ISS DVT prophylaxis - Will DC Heparin - Will start TEDs/Sequentials Disposition: - Awaiting clinical improvement - Discuss case with patient and his daughter via speaker phone Pat PETERSEN, I+O VSPat, I+O Laboratory Tests 06/15/21 22:01 06/16/21 06:50 Vital Signs Date Time Temp Pulse Resp B/P (MAP) Pulse Ox O2 Delivery O2 Flow Rate FiO2 06/16/21 14:00 86 20 143/93 (110) 96 Room Air 06/16/21 12:00 97.8 I&O- Last 24 Hours up to 6 AM 06/16/21 06:00 Intake Total 0 ml Balance 0 ml GALE BOOGIE MD Jun 16, 2021 17:27
[2021-06-16] MEDS: HumaLOG INSULIN (NovoLOG) PER UNIT SC SCH ×2 (18:30→21:00)
--- NOTE | 2021-06-16 19:09 | ECHO ---
ECHOCARDIOGRAM DATE OF PROCEDURE: 06/16/2021 Age: 60 Gender: Male Height: 72 inches Weight: 295 pounds Body Surface Area: 2.52 m2 PATIENT LOCATION: Inpatient, Intensive care unit (ICU), Room 3204 REFERRING PHYSICIAN: Elaina Aguilar D.O. INDICATION: Costovertebral angle (CVA) - questionable cardiac source of embolic material. MEASUREMENTS: 2D Measurements: RV - 3.6 cm LV - 5.4 cm Septum 1.2 cm Posterior wall 1.2 cm Aortic root 4.0 cm Ascending aorta 3.6 cm LA - 5.0 cm LVEF 75% Doppler Measurements: AV - 1.51 m/sec LVOT - 1.36 m/sec LVOT diameter 2.2 cm MV-E 63, A 73, EA ratio 0.9 Early mitral deceleration time 282 msec E prime medial 5.9 A prime medial 12.7 E prime lateral 10 Average E/E prime ratio 7.9/PCWP 11.7 mmHg PV - 1.0 m/sec Pulmonary artery acceleration time 116 msec PASP 30 mmHg IVC - could not be visualized COMMENTS: Normal sinus rhythm without intraventricular conduction disturbance. Technically challenging study in light of the patient's body habitus, but diagnostically useful information was still obtained. M-mode and 2-dimensional echocardiography was performed with pulse, continuous wave, color flow and tissue Doppler studies. Borderline symmetrically hypertrophied left ventricle with hyperkinetic wall motion. Moderately dilated left atrium with grade 1 left ventricular (LV) diastolic dysfunction, but current mean left atrial pressure within normal limits. Normal right heart chamber sizes and motion and Doppler sign of borderline pulmonary hypertension. Inferior vena cava (IVC) could not be visualized to further estimate central venous pressure, but unlikely to be elevated. Borderline dilated aortic root, but normal ascending aortic diameter. Mild aortic valvular sclerosis without functional abnormality. Normal appearing mitral valvular apparatus and function with no more than trace insufficiency. Normal appearing tricuspid valve with trace insufficiency. We could not visualize an intracardiac mass; however, as mentioned, the study was technically challenging. No pericardial effusion.
[2021-06-16] MEDS: CARVedilol 12.5 MG TAB PO SCH (21:08)
[2021-06-17] VITALS (8 sets, daily range): BP systolic 112–139; BP diastolic 58–88
[2021-06-17 04:22] LABS: BASO # 0.1 10^3/uL (0.0-0.2); BASO % 0.9 % (0.0-1.0); EOS # 0.1 10^3/uL (0.0-0.5); HEMATOCRIT 39.5 % (42.0-52.0); HEMOGLOBIN 13.9 g/dl (13.5-17.5); LYMPH # 2.1 10^3/uL (1.5-5.0); LYMPH % 32.4 % (24.0-44.0); MEAN CORPUSCULAR HEMOGLOBIN 31.7 pg (27.0-33.0); MEAN CORPUSCULAR HGB CONC 35.2 g/dl (32.0-36.5); MONO # 0.6 10^3/uL (0.0-0.8); MONO % 8.7 % (2.0-8.0); NEUTROPHILS # 3.5 10^3/uL (1.5-8.5); NEUTROPHILS % 55.8 % (36.0-66.0); PLATELET COUNT, AUTOMATED 187 10^3/uL (150-450); RED BLOOD COUNT 4.39 10^6/uL (4.30-6.10); WHITE BLOOD COUNT 6.4 10^3/uL (4.0-10.0)
[2021-06-17 04:42] LABS: BLOOD UREA NITROGEN 12 MG/DL (7-18); CALCIUM LEVEL 9.2 MG/DL (8.5-10.1); CARBON DIOXIDE LEVEL 27 MEQ/L (21-32); CHLORIDE LEVEL 105 MEQ/L (98-107); CREATININE FOR GFR 0.94 MG/DL (0.70-1.30); GLOMERULAR FILTRATION RATE > 60.0 (>56); GLUCOSE, FASTING 132 MG/DL (70-100); POTASSIUM SERUM 3.9 MEQ/L (3.5-5.1); SODIUM LEVEL 140 MEQ/L (136-145)
--- NOTE | 2021-06-17 06:08 | REPVR ---
PROCEDURE INFORMATION: Exam: CT Head Without Contrast Exam date and time: 06/17/2021 6:00 AM Age: 60 years old Clinical indication: Condition or disease; Other: F/u stroke; Additional info: Ich TECHNIQUE: Imaging protocol: Computed tomography of the head without contrast. Radiation optimization: All CT scans at this facility use at least one of these dose optimization techniques: automated exposure control; mA and/or kV adjustment per patient size (includes targeted exams where dose is matched to clinical indication); or iterative reconstruction. COMPARISON: 1. CT Head without contrast 06/16/2021 2:28 PM 2. MRI-Brain without Contrast 06/15/2021 9:12:31 PM FINDINGS: Brain: Low-attenuation, loss of castillo-white differentiation and hyperdense tissue in the right occipital lobe are again seen, consistent with an infarct with hemorrhagic conversion, unchanged from the prior exams. There is mild regional mass effect with sulcal narrowing, unchanged. There is no midline shift. No new sites of infarct or hemorrhage are identified. Cerebral ventricles: The ventricular system is normal in size and configuration. Paranasal sinuses: There is patchy mucoperiosteal thickening in the visualized sinuses, consistent with chronic sinusitis. Mastoid air cells: The visualized mastoid air cells are clear. Bones/joints: No acute fractures of the skull are identified. Soft tissues: The soft tissues appear unremarkable. IMPRESSION: 1. No significant change in the appearance of the right occipital infarct with hemorrhagic conversion. 2. No new sites of infarct or new hemorrhage. Electronically signed by: Beatriz Fairbanks On 06/17/2021 06:08:26 AM
[2021-06-17] MEDS: HumaLOG INSULIN (NovoLOG) PER UNIT SC SCH ×4 (08:06→20:36)
[2021-06-17] MEDS: CYANOCOBALAMIN 500 MCG TAB PO SCH (08:10)
[2021-06-17] MEDS: ATORVASTATIN 20 MG TAB PO SCH (08:11)
[2021-06-17] MEDS: CARVedilol 12.5 MG TAB PO SCH ×2 (08:11→20:28)
--- NOTE | 2021-06-17 08:19 | REP ---
INDICATION: Assess stenosis TECHNIQUE: Carotid ultrasonography was performed bilaterally FINDINGS: Right: CCA systolic: 131.9 centimeters/second CCA diastolic: 30.7 centimeters/second ICA systolic: 89.7 centimeters/second ICA diastolic: 16.9 centimeters/second ICA CCA ratio: 0.68 Left: CCA systolic: 100.0 centimeters/second CCA diastolic: 19.4 centimeters/second ICA systolic: 65.7 centimeters/second ICA diastolic: 22.7 centimeters/second ICA CCA ratio: 0.62 Vertebral artery: Right: Antegrade flow left: Antegrade flow IMPRESSION: According to the SRU criteria there is less than 50% stenosis of the internal carotid artery bilaterally. This is secondary to both calcified and noncalcified atheromatous plaque formation. <Electronically signed by Walker Garner > 06/17/21 0898
--- NOTE | 2021-06-17 11:16 | IPNPDOC ---
Text Note Date of Service The patient was seen on 06/17/21. 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 Patient initially presented to the emergency room on 06/13 2 PM in the emergency room, patient had a CT scan that revealed evidence of an right occipital lobe infarct. MRI was ordered by the ER provider. Patient was admitted to the hospitalist service for further evaluation and treatment I have assumed care for this patient at 7 AM on 06/16. Upon review of MRI imaging; there was evidence of the right occipital lobe infarct with evidence of hemorrhage. Patient was urgently transition to the ICU for every hour neuro checks, digital account executive, and urology were called on consultation. [facility] were contracted for transfer for a higher level of care. - Discussed the case in detail with Dr. Carrion; neuro stroke attending - Reports that the findings of hemorrhage or petechial and do not necessitate transfer. He has reviewed images. - Discussed the case in detail with Dr. Murillo; Neurosurgery at [facility]. - He reports that if repeat CT imaging does not show any progression that a transfer would not be required. Patient was seen and examined at the bedside this morning. His headache is doing better. He reports that his vision is same as it was yesterday morning, which is markedly improved from when it first started to become blurry. He denies any chest pain, shortness breath, palpitations, nausea, vomiting, abdominal pain or diarrhea. Objective: Vitals (See below) General: Sitting up, appears comfortable, AAOx3 HEENT: Normocephalic and atraumatic, pupils are equal, round, reactive to light bilaterally CVS: +S1S2 Lungs: Fair air entry b/l, no wheezing / rhonchi / rales Abdomen: Soft, non-distended, non-tender Extremities: No evidence of edema Neuro: His strength of upper / lower extremities remain 5/5 bilaterally Imaging: Head CT 06/15: Probable acute infarction right posterior cerebral artery distribution. However there is an area of increased density within the hypodensity and an underlying tumor is possible therefore suggest contrast enhanced CT or MRI for further evaluation. CTA Head 06/15: No large vessel stenosis or occlusion however there appears to be an acute infarction in the right posterior temporal, occipital and parietal lobes. No mass is seen in the right parietal and occipital lobes to suggest an underlying lesion however only early arterial phase is included on this examination. MRA Brain 06/15: No intracranial stenosis or occlusion MRI Brain 06/15: Subacute right occipital cortical infarct with area of hemorrhage within the infarct. ECHO 06/15: Normal sinus rhythm without intraventricular conduction disturbance. Technically challenging study in light of the patient's body habitus, but diagnostically useful information was still obtained. M-mode and 2-dimensional echocardiography was performed with pulse, continuous wave, color flow and tissue Doppler studies. Borderline symmetrically hypertrophied left ventricle with hyperkinetic wall motion. Moderately dilated left atrium with grade 1 left ventricular (LV) diastolic dysfunction, but current mean left atrial pressure within normal limits. Normal right heart chamber sizes and motion and Doppler sign of borderline pulmonary hypertension. Inferior vena cava (IVC) could not be visualized to further estimate central venous pressure, but unlikely to be elevated. Borderline dilated aortic root, but normal ascending aortic diameter. Mild aortic valvular sclerosis without functional abnormality. Normal appearing mitral valvular apparatus and function with no more than trace insufficiency. Normal appearing tricuspid valve with trace insufficiency. We could not visualize an intracardiac mass; however, as mentioned, the study was technically challenging. No pericardial effusion. Head CT 06/16: There is been a subtle increase in CT attenuation in a portion of the right temporal occipital lobe infarction corresponding to the area of parenchymal hemorrhage seen on yesterday's MRI study. Findings consistent with acute infarction with petechial hemorrhagic component. Head CT 06/16 - 1400: Continued evolution of subacute right occipital lobe infarct with superimposed focal hemorrhage. Vascular Duplex Carotid US 06/16: According to the SRU criteria there is less than 50% stenosis of the internal carotid artery bilaterally. This is secondary to both calcified and noncalcified atheromatous plaque formation. Head CT 06/17 - 600: 1. No significant change in the appearance of the right occipital infarct with hemorrhagic conversion. 2. No new sites of infarct or new hemorrhage. Assessment and plan: Acute CVA at R occipital area with area of petechial hemorrhage - Clinically remains stable / improvement in headache / vision has improved - Remains hemodynamically stable and afebrile - Physical remains without any deficits - Cardiac risk profile / Imaging noted above - c/w Atorvastatin - Aspirin and Plavix have been discontinued; no indication for dual antiplatelet therapy - c/w Neuro Checks [id number] - Consulted digital account executive and neurologist; appreciate their input - Plan for serial CT scans, every 24 hours, assuming CT scan on Sunday is unchanged; we will plan for discharge at that point with follow-up CT scan in 3 weeks HTN - Given above findings, will keep blood pressure less than 140 - c/w carvedilol alone with adjusted hold parameters DM2 - c/w ISS DVT prophylaxis - s/p Heparin - c/w TEDs/Sequentials Disposition: - Will remain in ICU and will continue with serial CT scans - Dissipate discharge Sunday, if CT scans remain stable - Discussed care plan with Cassidy Antoine (PCP); will have early follow up appointment next week to ensure scheduling of CT scan VS,Pat, I+O VS, Fishbone, I+O Laboratory Tests 06/17/21 04:01 Vital Signs Date Time Temp Pulse Resp B/P (MAP) Pulse Ox O2 Delivery O2 Flow Rate FiO2 06/17/21 08:11 74 138/88 06/17/21 08:00 97.4 18 100 Room Air I&O- Last 24 Hours up to 6 AM 06/17/21 06:00 Intake Total 1590 ml Output Total 750 ml Balance 840 ml GALE BOOGIE MD Jun 17, 2021 11:16
[2021-06-18] VITALS: BP 99/56
[2021-06-18 04:00] VITALS: BP 110/71
[2021-06-18 05:08] LABS: BASO % 0.6 % (0.0-1.0); EOS # 0.2 10^3/uL (0.0-0.5); EOS % 2.5 % (0.0-3.0); HEMATOCRIT 38.5 % (42.0-52.0); HEMOGLOBIN 13.6 g/dl (13.5-17.5); LYMPH % 29.3 % (24.0-44.0); MEAN CORPUSCULAR HEMOGLOBIN 31.9 pg (27.0-33.0); MEAN CORPUSCULAR HGB CONC 35.3 g/dl (32.0-36.5); MEAN CORPUSCULAR VOLUME 90.4 fl (80.0-96.0); MONO # 0.5 10^3/uL (0.0-0.8); MONO % 7.4 % (2.0-8.0); NEUTROPHILS # 4.1 10^3/uL (1.5-8.5); NEUTROPHILS % 59.9 % (36.0-66.0); PLATELET COUNT, AUTOMATED 161 10^3/uL (150-450); RED BLOOD COUNT 4.26 10^6/uL (4.30-6.10); WHITE BLOOD COUNT 6.9 10^3/uL (4.0-10.0)
[2021-06-18 05:40] LABS: BLOOD UREA NITROGEN 13 MG/DL (7-18); CALCIUM LEVEL 8.5 MG/DL (8.5-10.1); CARBON DIOXIDE LEVEL 28 MEQ/L (21-32); CHLORIDE LEVEL 106 MEQ/L (98-107); CREATININE FOR GFR 0.95 MG/DL (0.70-1.30); GLOMERULAR FILTRATION RATE > 60.0 (>56); GLUCOSE, FASTING 138 MG/DL (70-100); SODIUM LEVEL 141 MEQ/L (136-145)
--- NOTE | 2021-06-18 07:08 | REPVR ---
PROCEDURE INFORMATION: Exam: CT Head Without Contrast Exam date and time: 06/18/2021 5:44 AM Age: 60 years old Clinical indication: Other: Pettechial hemorrhage TECHNIQUE: Imaging protocol: Computed tomography of the head without contrast. Radiation optimization: All CT scans at this facility use at least one of these dose optimization techniques: automated exposure control; mA and/or kV adjustment per patient size (includes targeted exams where dose is matched to clinical indication); or iterative reconstruction. COMPARISON: CT Head without contrast 06/17/2021 5:44 AM FINDINGS: Brain: No significant change is seen in the right occipital infarct with hemorrhagic conversion causing mild mass effect on the atrium of the right lateral ventricle. No new area of acute infarct is seen. No midline shift. Cerebral ventricles: No ventriculomegaly. Paranasal sinuses: Mild mucosal thickening of the ethmoidal air cells and left sphenoid sinus and left frontal sinus. Mastoid air cells: Visualized mastoid air cells are well aerated. Bones/joints: Unremarkable. No acute fracture. Soft tissues: Unremarkable. IMPRESSION: No significant change is seen in the right occipital infarct with hemorrhagic conversion causing mild mass effect on the atrium of the right lateral ventricle. No new area of acute infarct is seen. No midline shift. Electronically signed by: Emi Hernandez On 06/18/2021 07:08:28 AM
[2021-06-18 08:00] VITALS: BP 150/92
[2021-06-18] MEDS: HumaLOG INSULIN (NovoLOG) PER UNIT SC SCH ×4 (08:32→21:00)
[2021-06-18] MEDS: ATORVASTATIN 20 MG TAB PO SCH (08:32)
[2021-06-18] MEDS: CYANOCOBALAMIN 500 MCG TAB PO SCH (08:33)
[2021-06-18] MEDS: CARVedilol 12.5 MG TAB PO SCH ×2 (08:33→21:00)
--- NOTE | 2021-06-18 10:59 | IPNPDOC ---
Text Note Date of Service The patient was seen on 06/18/21. 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 Patient initially presented to the emergency room on 06/13 2 PM in the emergency room, patient had a CT scan that revealed evidence of an right occipital lobe infarct. MRI was ordered by the ER provider. Patient was admitted to the hospitalist service for further evaluation and treatment I have assumed care for this patient at 7 AM on 06/16. Upon review of MRI imaging; there was evidence of the right occipital lobe infarct with evidence of hemorrhage. Patient was urgently transition to the ICU for every hour neuro checks, shaper and presser, and urology were called on consultation. [facility] were contracted for transfer for a higher level of care. - Discussed the case in detail with Dr. Carrion; neuro stroke attending - Reports that the findings of hemorrhage or petechial and do not necessitate transfer. He has reviewed images. - Discussed the case in detail with Dr. Murillo; Neurosurgery at [facility]. - He reports that if repeat CT imaging does not show any progression that a transfer would not be required. Patient has remained in her ICU for frequent neurologic check and with neurology and shaper and presser on consultation. Patient was seen and examined at the bedside this morning. Patient reports that his headaches have had full resolution, and are no longer changed with positing. Denies any changes in his vision. Denies any chest pain, shortness of breath, palpitations, nausea, vomiting, abdominal pain or diarrhea. Objective: Vitals (See below) General: Patient is sitting up in a chair, appears to be comfortable, not in any acute distress. He is awake, alert, oriented 3 HEENT: Again, both his pupils are equal, round and reactive to light CVS: Regular rate and rhythm, positive S1 and S2 Lungs: Air entry appears to be fair bilaterally without any auscultated crackles, wheezing or rhonchi Abdomen: Soft, ND, NT Extremities: Lower extremities are without any edema Neuro: Bilateral upper and lower extremities still reveal 5/5 strength Imaging: Head CT 06/15: Probable acute infarction right posterior cerebral artery distribution. However there is an area of increased density within the hypodensity and an underlying tumor is possible therefore suggest contrast enhanced CT or MRI for further evaluation. CTA Head 06/15: No large vessel stenosis or occlusion however there appears to be an acute infarction in the right posterior temporal, occipital and parietal lobes. No mass is seen in the right parietal and occipital lobes to suggest an underlying lesion however only early arterial phase is included on this examination. MRA Brain 06/15: No intracranial stenosis or occlusion MRI Brain 06/15: Subacute right occipital cortical infarct with area of hemorrhage within the infarct. ECHO 06/15: Normal sinus rhythm without intraventricular conduction disturbance. Technically challenging study in light of the patient's body habitus, but diagnostically useful information was still obtained. M-mode and 2-dimensional echocardiography was performed with pulse, continuous wave, color flow and tissue Doppler studies. Borderline symmetrically hypertrophied left ventricle with hyperkinetic wall motion. Moderately dilated left atrium with grade 1 left ventricular (LV) diastolic dysfunction, but current mean left atrial pressure within normal limits. Normal right heart chamber sizes and motion and Doppler sign of borderline pulmonary hypertension. Inferior vena cava (IVC) could not be visualized to further estimate central venous pressure, but unlikely to be elevated. Borderline dilated aortic root, but normal ascending aortic diameter. Mild aortic valvular sclerosis without functional abnormality. Normal appearing mitral valvular apparatus and function with no more than trace insufficiency. Normal appearing tricuspid valve with trace insufficiency. We could not visualize an intracardiac mass; however, as mentioned, the study was technically challenging. No pericardial effusion. Head CT 06/16: There is been a subtle increase in CT attenuation in a portion of the right temporal occipital lobe infarction corresponding to the area of parenchymal hemorrhage seen on yesterday's MRI study. Findings consistent with acute infarction with petechial hemorrhagic component. Head CT 06/16 - 1399: Continued evolution of subacute right occipital lobe infarct with superimposed focal hemorrhage. Vascular Duplex Carotid US 06/16: According to the SRU criteria there is less than 50% stenosis of the internal carotid artery bilaterally. This is secondary to both calcified and noncalcified atheromatous plaque formation. Head CT 06/17: 1. No significant change in the appearance of the right occipital infarct with hemorrhagic conversion. 2. No new sites of infarct or new hemorrhage. Head CT 06/18: No significant change is seen in the right occipital infarct with hemorrhagic conversion causing mild mass effect on the atrium of the right lateral ha tricle. No new area of acute infarct is seen. No midline shift. Assessment and plan: Acute CVA at R occipital area with area of petechial hemorrhage - Resolution of headache / Vision has returned to baseline - Hemodynamically stable - No deficits on exam - Cardiac risk profile noted - c/w Atorvastatin - Aspirin and Plavix have been discontinued; no indication for dual antiplatelet therapy; hold all antiplatelet therapy until repeat CT scan in 3 weeks - ASA 81 after that point if scans appear stable - c/w Neuro Checks o3aites - Consulted shaper and presser and neurologist; appreciate their input - Final CT scan for tomorrow; if unchanged will DC tomorrow with instructions to follow up with Cassidy Antoine to have repeat CT in 3 weeks HTN - Will keep BP optimized - Currently appears well controlled with single agent - Chlorthalidone / Losartan on hold - c/w carvedilol alone with adjusted hold parameters DM2 - c/w ISS DVT prophylaxis - s/p Heparin - c/w TEDs/Sequentials Disposition: - Will remain in ICU and will continue with serial CT scans - Anticipate discharge tomorrow morning, if CT scans remain stable - Care plan was discussed with Cassidy Antoine (PCP); will have early follow up appointment next week to ensure scheduling of CT scan VS,Myrnae, I+O VS, Myrnae, I+O Laboratory Tests 06/18/21 04:58 Vital Signs Date Time Temp Pulse Resp B/P (MAP) Pulse Ox O2 Delivery O2 Flow Rate FiO2 06/18/21 08:00 97.7 77 18 150/92 (111) 94 Room Air I&O- Last 24 Hours up to 6 AM 06/18/21 06:00 Intake Total 1620 ml Output Total 725 ml Balance 895 ml GALE BOOGIE MD Jun 18, 2021 10:59
[2021-06-18 12:00] VITALS: BP 128/82
[2021-06-18 16:00] VITALS: BP 121/77
[2021-06-18 20:00] VITALS: BP 113/73
[2021-06-19] VITALS: BP 103/71
[2021-06-19 04:00] VITALS: BP 141/74
[2021-06-19 04:29] LABS: BASO % 0.6 % (0.0-1.0); EOS # 0.2 10^3/uL (0.0-0.5); EOS % 2.2 % (0.0-3.0); HEMATOCRIT 40.5 % (42.0-52.0); HEMOGLOBIN 13.9 g/dl (13.5-17.5); LYMPH # 1.8 10^3/uL (1.5-5.0); LYMPH % 25.7 % (24.0-44.0); MEAN CORPUSCULAR HEMOGLOBIN 31.6 pg (27.0-33.0); MEAN CORPUSCULAR HGB CONC 34.3 g/dl (32.0-36.5); MONO # 0.6 10^3/uL (0.0-0.8); MONO % 7.8 % (2.0-8.0); NEUTROPHILS # 4.5 10^3/uL (1.5-8.5); NEUTROPHILS % 63.4 % (36.0-66.0); PLATELET COUNT, AUTOMATED 174 10^3/uL (150-450); WHITE BLOOD COUNT 7.2 10^3/uL (4.0-10.0)
[2021-06-19 05:02] LABS: BLOOD UREA NITROGEN 18 MG/DL (7-18); CALCIUM LEVEL 8.3 MG/DL (8.5-10.1); CARBON DIOXIDE LEVEL 26 MEQ/L (21-32); CHLORIDE LEVEL 107 MEQ/L (98-107); CREATININE FOR GFR 1.03 MG/DL (0.70-1.30); GLOMERULAR FILTRATION RATE > 60.0 (>56); GLUCOSE, FASTING 172 MG/DL (70-100); POTASSIUM SERUM 4.2 MEQ/L (3.5-5.1); SODIUM LEVEL 142 MEQ/L (136-145)
--- NOTE | 2021-06-19 06:19 | REPVR ---
PROCEDURE INFORMATION: Exam: CT Head Without Contrast Exam date and time: 06/19/2021 4:43 AM Age: 60 years old Clinical indication: Condition or disease; Other: Pettechial hemorrhage TECHNIQUE: Imaging protocol: Computed tomography of the head without contrast. Radiation optimization: All CT scans at this facility use at least one of these dose optimization techniques: automated exposure control; mA and/or kV adjustment per patient size (includes targeted exams where dose is matched to clinical indication); or iterative reconstruction. COMPARISON: 1. CT Head without contrast 06/18/2021 5:[address] Head without contrast 06/17/2021 5:44:40 AM FINDINGS: Brain: Low-attenuation and loss of castillo-white differentiation are again seen in the right occipital lobe, consistent with an acute to subacute infarct. Hyperdensity within this area consistent with hemorrhagic conversion appears unchanged. Sulcal narrowing within the area appears unchanged. The castillo-white differentiation is otherwise preserved. No new hemorrhage is identified. Cerebral ventricles: There is mild mass effect upon the atrium of the right lateral ventricle, unchanged. The ventricles are otherwise normal in size and configuration. Paranasal sinuses: There is persistent patchy mucoperiosteal thickening in the paranasal sinuses. No fluid levels. Mastoid air cells: The mastoid air cells are clear. Bones/joints: No acute fractures of the skull are identified. Soft tissues: The soft tissues appear unremarkable. IMPRESSION: Right occipital infarct with hemorrhagic conversion, without significant change compared to the 2 prior exams. Electronically signed by: Beatriz Fairbanks On 06/19/2021 06:18:58 AM
[2021-06-19 07:52] VITALS: BP 139/86
[2021-06-19] MEDS: HumaLOG INSULIN (NovoLOG) PER UNIT SC SCH (07:57)
[2021-06-19 07:58] VITALS: BP 139/86
[2021-06-19] MEDS: CARVedilol 12.5 MG TAB PO SCH (07:58)
[2021-06-19] MEDS: CYANOCOBALAMIN 500 MCG TAB PO SCH (07:58)
[2021-06-19] MEDS: ATORVASTATIN 20 MG TAB PO SCH (07:59)
[2021-06-19] MEDS ORDERED: ATOR40TA75 PO (08:09)
--- NOTE | 2021-06-19 10:19 | DS.PDOC ---
Discharge Summary General Date of Admission Jun 15, 2021 at 20:58 Date of Discharge 06/19/2021 Discharge Summary PROCEDURES PERFORMED DURING STAY: [None]. ADMITTING DIAGNOSES / DISCHARGE DIAGNOSES: Headache / Blurred vision - likely 2/2 acute CVA at R occipital area with area of petechial hemorrhage HTN DM2 DVT prophylaxis COMPLICATIONS/CHIEF COMPLAINT: Headache / Blurred vision HISTORY OF PRESENT ILLNESS: Patient is a 60-year-old male with a PMHx HTN, DM2, Hx of Stress induced DC (no stents) who presented to the emergency room with compressive headaches and blurred vision that started on 06/14 PM. Patient initially presented to the emergency room on 06/13 2 PM in the emergency room, patient had a CT scan that revealed evidence of an right occipital lobe infarct. MRI was ordered by the ER provider. Patient was admitted to the hospitalist service for further evaluation and treatment I have assumed care for this patient at 7 AM on 06/16. Upon review of MRI imaging; there was evidence of the right occipital lobe infarct with evidence of hemorrhage. Patient was urgently transition to the ICU for every hour neuro checks, senior database administrator, and urology were called on consultation. [facility] were contracted for transfer for a higher level of care. - Discussed the case in detail with Dr. Carrion; neuro stroke attending - Reports that the findings of hemorrhage or petechial and do not necessitate transfer. He has reviewed images. - Discussed the case in detail with Dr. Murillo; Neurosurgery at [facility]. - He reports that if repeat CT imaging does not show any progression that a transfer would not be required. Patient has remained in her ICU for frequent neurologic check and with neurology and senior database administrator on consultation. Patient was seen and examined at the bedside this morning. Again. He was seen sitting up in chair. Denied any headache reported that his vision is now 98% better. Denied any chest pain, shortness breath, palpitations. Has not experience any nausea, vomiting, abdominal pain, diarrhea, or urinary discomfort. HOSPITAL COURSE: Headache / Blurred vision - likely 2/2 acute CVA at R occipital area with area of petechial hemorrhage - Patient denies any further headaches and has reported 98% improvement of his vision - Hemodynamically stable - No deficits on exam - Cardiac risk profile noted - c/w Atorvastatin - Aspirin and Plavix have been discontinued; will continue to hold all antiplatelet therapy until repeat CT scan in 3 weeks - ASA 81 after that point if scans appear stable - While in the ICU patient had neuro checks q2 hours performed - Materials Technician / Neurologist were consulted; appreciate their input - Will have outpatient follow-up with primary care provider, and neurology within the next 7 days - Will have repeat CT scan completed in 3 weeks for determination of stability / initiation of anti-platelet therapy HTN - Blood pressure remains optimized - Chlorthalidone / Losartan will be discontinued; blood pressure has remained well controlled on single agent - Will have outpatient follow-up with primary care provider for adjustment blood pressure medications as required - c/w Carvedilol alone with adjusted hold parameters DM2 - c/w ISS DVT prophylaxis - s/p Heparin - c/w TEDs/Sequentials DISCHARGE MEDICATIONS: Please see below. ALLERGIES: Please see below. PHYSICAL EXAMINATION ON DISCHARGE: Vitals (See below) General: Sitting up in chair, appears to be comfortable without any acute distress, AAOx3 HEENT: Both pupils are round and reactive to light CVS: Regular rate and rhythm with positive S1 and S2 noted Lungs: There appears to be fair air entry bilaterally without any auscultated evidence of wheezing, crackles or rhonchi Abdomen: Remains soft without any distention or tenderness Extremities: No evidence of edema Neuro: Strength remains 5/5 bilaterally at upper and lower extremities LABORATORY DATA: Please see below. IMAGING: Head CT 06/15: Probable acute infarction right posterior cerebral artery distribution. However there is an area of increased density within the hypodensity and an underlying tumor is possible therefore suggest contrast enhanced CT or MRI for further evaluation. CTA Head 06/15: No large vessel stenosis or occlusion however there appears to be an acute infarction in the right posterior temporal, occipital and parietal lobes. No mass is seen in the right parietal and occipital lobes to suggest an underlying lesion however only early arterial phase is included on this examination. MRA Brain 06/15: No intracranial stenosis or occlusion MRI Brain 06/15: Subacute right occipital cortical infarct with area of hemorrhage within the infarct. ECHO 06/15: Normal sinus rhythm without intraventricular conduction disturbance. Technically challenging study in light of the patient's body habitus, but d iagnostically useful information was still obtained. M-mode and 2-dimensional echocardiography was performed with pulse, continuous wave, color flow and tissue Doppler studies. Borderline symmetrically hypertrophied left ventricle with hyperkinetic wall motion. Moderately dilated left atrium with grade 1 left ventricular (LV) diastolic dysfunction, but current mean left atrial pressure within normal limits. Normal right heart chamber sizes and motion and Doppler sign of borderline pulmonary hypertension. Inferior vena cava (IVC) could not be visualized to further estimate central venous pressure, but unlikely to be elevated. Borderline dilated aortic root, but normal ascending aortic diameter. Mild aortic valvular sclerosis without functional abnormality. Normal appearing mitral valvular apparatus and function with no more than trace insufficiency. Normal appearing tricuspid valve with trace insufficiency. We could not visualize an intracardiac mass; however, as mentioned, the study was technically challenging. No pericardial effusion. Head CT 06/16: There is been a subtle increase in CT attenuation in a portion of the right temporal occipital lobe infarction corresponding to the area of parenchymal hemorrhage seen on yesterday's MRI study. Findings consistent with acute infarction with petechial hemorrhagic component. Head CT 06/16: Continued evolution of subacute right occipital lobe infarct with superimposed focal hemorrhage. Vascular Duplex Carotid US 06/16: According to the SRU criteria there is less than 50% stenosis of the internal carotid artery bilaterally. This is secondary to both calcified and noncalcified atheromatous plaque formation. Head CT 06/17: 1. No significant change in the appearance of the right occipital infarct with hemorrhagic conversion. 2. No new sites of infarct or new hemorrhage. Head CT 06/18: No significant change is seen in the right occipital infarct with hemorrhagic c onversion causing mild mass effect on the atrium of the right lateral ventricle. No new area of acute infarct is seen. No midline shift. Head CT 06/19: Right occipital infarct with hemorrhagic conversion, without significant change compared to the 2 prior exams. ACTIVITY: [As tolerated]. DISCHARGE PLAN: Follow-up with primary care provider within the next 7 days Ensure that repeat CT scan within the next 3 weeks. Gets completed for follow-up and determination of timing/resumption of antiplatelet therapy Remain compliant with treatment plan and medications Return to the ER if you experience any problems DISPOSITION: Home, Self-Care. DISCHARGE CONDITION: [Stable]. TIME SPENT ON DISCHARGE: 35 minutes. Vital Signs/I&Os Vital Signs Date Time Temp Pulse Resp B/P (MAP) Pulse Ox O2 Delivery O2 Flow Rate FiO2 06/19/21 07:58 73 139/86 06/19/21 07:52 97.3 18 96 Room Air I&O- Last 24 Hours up to 6 AM 06/19/21 06:00 Intake Total 240 ml Output Total 400 ml Balance -160 ml Laboratory Data Labs 24H Laboratory Tests 2 06/18/21 12:32: Bedside Glucose (Misc Panel) 103 06/18/21 17:23: Bedside Glucose (Misc Panel) 192H 06/18/21 21:22: Bedside Glucose (Misc Panel) 182H 06/19/21 04:17: Immature Granulocyte % (Auto) 0.3, Neutrophils (%) (Auto) 63.4, Lymphocytes (%) (Auto) 25.7, Monocytes (%) (Auto) 7.8, Eosinophils (%) (Auto) 2.2, Basophils (%) (Auto) 0.6, Neutrophils # (Auto) 4.5, Lymphocytes # (Auto) 1.8, Monocytes # (Auto) 0.6, Eosinophils # (Auto) 0.2, Basophils # (Auto) 0.0, Nucleated Red Blood Cells % (auto) 0.0, Anion Gap 9, Glomerular Filtration Rate > 60.0, Calcium Level 8.3L CBC/BMP Laboratory Tests 06/19/21 04:17 FSBS Laboratory Tests Test 06/18/21 12:32 06/18/21 17:23 06/18/21 21:22 Range/Units Bedside Glucose (Misc Panel) 103 192 182 70-105 MG/DL Discharge Medications Scheduled Atorvastatin Calcium (Atorvastatin Calcium) 40 Mg Tablet, 1 TAB PO DAILY Carvedilol (Carvedilol) 25 Mg Tablet, 25 MG PO BID, (Reported) Cholecalciferol (Vitamin D3) (Vitamin D3) 25 Mcg Capsule, 25 MCG PO DAILY, (Reported) Cyanocobalamin (Vitamin B-12) (Vitamin B-12) 500 Mcg Tablet, 500 MCG PO DAILY, (Reported) Metformin HCl (Metformin HCl ER) 500 Mg Tab.er.24h, 500 MG PO BID, (Reported) [place]-3 Fatty Acids/Fish Oil (Fish Oil 1,000 mg Capsule) 1 Each Capsule, 1,000 MG PO DAILY, (Reported) Turmeric Root Extract (Turmeric) 500 Mg Capsule, 500 MG PO DAILY, (Reported) Scheduled PRN Betamethasone Dip (Betamethasone Dipropionate) 15 Gm Oint...g., 1 APLCT TOP BID PRN for RASH, (Reported) RIGHT HAND Allergies Coded Allergies: No Known Allergies (Unverified , 06/15/21) GALE BOOGIE MD Jun 19, 2021 10:19
--- NOTE | 2021-06-20 10:53 | CR ---
CONSULTATION DATE: 06/19/2021 REFERRING PHYSICIAN: GALE BOOGIE MD REASON FOR CONSULTATION: Acute stroke with hemorrhagic conversion involving the right occipital lobe. HISTORY OF PRESENT ILLNESS: Dwight Tariq is a 60-year-old male with a past medical history significant for hypertension, history of coronary artery disease status post myocardial infarction and obesity. The patient presents with a chief complaint of having headache with vision loss. 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 The patient had this occur on Sunday night and by Sunday evening he arrived to the hospital as his symptoms were getting worse. He could hardly see. He took baby aspirin at home at night, tried falling back asleep and then the next day came to the ER. The patient was given aspirin and Plavix after head CT revealed an ischemic stroke involving the right occipital lobe. Follow-up MRI later revealed a hemorrhagic conversion. Aspirin and Plavix were held. The patient does not take baseline aspirin at home. Blood pressures were maintained less than 140. The patient states that his vision did return back to near normal. He denies any further headache. He denies any chest pain, shortness of breath, diplopia, dysarthria, dysphagia, vertigo, dizziness, ataxia, numbness or weakness. The patient is in agreement with staying in the hospital for the next several days and monitoring his hemorrhage. The patient was asked to be transferred to [facility], however [facility] spoke to Neurology/ICU Neuro Intensive Care did not accept the patient. Head CTs were repeated sequentially everyday showing stable findings without any further worsening of the intracranial hemorrhage. The patient still remains asymptomatic. The plan will be to hold off on restarting aspirin for the next three weeks after which a head CT will be obtained. If the head CT reveals complete resolution of blood products then a low dose of 81 mg aspirin daily will be started. The patient does not have any high-grade intracranial stenosis or stenosis of the carotids at this time. PAST MEDICAL HISTORY: Essential hypertension, history of coronary artery disease, obesity. PAST SURGICAL HISTORY: Tendon reattachment of the right middle finger. SOCIAL HISTORY: Patient denies any illicit drug use. He is a former smoker and quit in 1992. FAMILY HISTORY: Father with a history of hypertension and CAD, AAA aneurysm, was a smoker. REVIEW OF SYSTEMS: A 14 point review of systems was obtained and is negative except as per HPI. HOME MEDICATIONS: 1. Carvedilol 25 mg b.i.d. 2. Chlorthalidone 25 mg daily. 3. Vitamin D3 25 mcg daily. 4. B12 500 mcg daily. 5. Losartan 25 mg daily. 6. Metformin 500 mg b.i.d. 7. [place]-3 fish oil 1000 mg capsule daily. 8. Tumeric 500 mg capsule daily. ALLERGIES: No known drug allergies. PHYSICAL EXAMINATION: Vitals: Blood pressure is 133/60, pulse rate is 69, respiratory rate is 18. Oxygenation 97% on room air, temperature is 98.2 degrees Fahrenheit. Patient is oriented to person, place and time. Speech, language, comprehension and repetition are intact. Pupils are 3 mm and round. Extraocular movements are intact. There is no loss of vision landis on gross examination. Tongue is midline. Hearing is equal to finger rub. There is no loss of sensation to light touch in the face, arms and legs bilaterally. There is no gross ataxia, dysmetria or tremor. Romberg testing is negative. Deep tendon reflexes are 2+ throughout. There is no sensory deficit. Strength is normal, intact bilateral deltoid, biceps, triceps and hand drip, ileal psoas, quadriceps, anterior tibialis, deep tendon reflexes. Patient has normal strength in bilateral upper and lower extremities. ASSESSMENT: 1. 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 PLAN: Patient will have repeat serial head CTs completed until Sunday06/19/[address] is completed and stable. Patient will be discharged home. Repeat CT will be arranged through PCPs office in three weeks. If negative head CT without any further hemorrhage, low dose 81 mg aspirin will be resumed. Optimize stroke risk factors including hypertension, obesity, hyperlipidemia. Patient will be seen in the outpatient neurology clinic in six to eight weeks after discharge.
== END 2021-06-19 08:52 | disposition home or self-care (01) | DRG 45 ==
LOC: M ED 16:08 → M ED INP 20:58 → M PCU 21:52 → M ICU 06-16 08:44
PROVIDERS: ADMIT Family Medicine; ATTEND Internal Medicine
DX: I63.531 Cerebral infarction due to unspecified occlusion or stenosis of right posterior cerebral artery (principal); I62.9 Nontraumatic intracranial hemorrhage, unspecified; I10 Essential (primary) hypertension; I25.2 Old myocardial infarction; E78.5 Hyperlipidemia, unspecified; E11.9 Type 2 diabetes mellitus without complications; Z79.84 Long term (current) use of oral hypoglycemic drugs; Z79.899 Other long term (current) drug therapy; Z20.822 Contact with and (suspected) exposure to COVID-19; Z87.891 Personal history of nicotine dependence

== ENCOUNTER → 2021-06-15 | Outpatient (CLI) | payer SELFPAY ==
[~2021-06-15] MED LIST: BETA5CR TOP; CARV25TA PO; CHLO125TA PO; D 1010004 PO; FISH1000 PO; LOSA25TA14 PO; METF-838 PO; RA T500C2 PO; VITA500T40 PO
[2021-06-15 13:28] LABS: BASO % 0.6 % (0.0-1.0); EOS # 0.1 10^3/uL (0.0-0.5); HEMATOCRIT 42.7 % (42.0-52.0); HEMOGLOBIN 14.7 g/dl (13.5-17.5); LYMPH # 1.8 10^3/uL (1.5-5.0); LYMPH % 25.1 % (24.0-44.0); MEAN CORPUSCULAR HEMOGLOBIN 32.1 pg (27.0-33.0); MEAN CORPUSCULAR HGB CONC 34.4 g/dl (32.0-36.5); MEAN CORPUSCULAR VOLUME 93.2 fl (80.0-96.0); MONO # 0.5 10^3/uL (0.0-0.8); MONO % 6.5 % (2.0-8.0); NEUTROPHILS # 4.6 10^3/uL (1.5-8.5); NEUTROPHILS % 65.5 % (36.0-66.0); PLATELET COUNT, AUTOMATED 198 10^3/uL (150-450); RED BLOOD COUNT 4.58 10^6/uL (4.30-6.10); WHITE BLOOD COUNT 7.1 10^3/uL (4.0-10.0)
[2021-06-15 13:37] LABS: APPEARANCE, URINE HAZY (CLEAR); BACTERIA, URINE AUTO NEGATIVE (NEGATIVE); BILIRUBIN, URINE AUTO NEGATIVE (NEGATIVE); BLOOD, URINE BLOOD NEGATIVE (NEGATIVE); COLOR, URINE YELLOW (YELLOW); GLUCOSE, URINE (UA) AUTO NEGATIVE (NEGATIVE); KETONE, URINE AUTO NEGATIVE (NEGATIVE); LEUKOCYTE ESTERASE, URINE AUTO NEGATIVE (NEGATIVE); MUCUS, URINE SMALL (NEGATIVE); NITRITE, URINE AUTO NEGATIVE (NEGATIVE); PROTEIN, URINE AUTO 1+ mg/dL (NEGATIVE); RBC, URINE AUTO 0 /HPF (0-3); SPECIFIC GRAVITY URINE AUTO 1.025 (1.002-1.035); SQUAMOUS EPITHELIAL CELL UR AU 0 /HPF (0-6); UROBILINOGEN, URINE AUTO 0.2 mg/dL (0.0-2.0); WBC, URINE AUTO 5 /HPF (0-3)
[2021-06-15 13:37] LABS: INR 0.93; PROTHROMBIN TIME 12.8 SECONDS (12.7-14.5)
[2021-06-15 13:38] LABS: PARTIAL THROMBOPLASTIN TIME 29.3 SECONDS (25.9-37.0)
[2021-06-15 13:44] LABS: HEMOGLOBIN A1c 6.9 %
[2021-06-15 14:35] LABS: ALBUMIN 4.1 GM/DL (3.2-5.2); ALT/SGPT 80 U/L (12-78); BILIRUBIN,TOTAL 0.6 MG/DL (0.2-1.0); BLOOD UREA NITROGEN 19 MG/DL (7-18); CALCIUM LEVEL 9.6 MG/DL (8.5-10.1); CARBON DIOXIDE LEVEL 31 MEQ/L (21-32); CHLORIDE LEVEL 104 MEQ/L (98-107); GLOMERULAR FILTRATION RATE > 60.0 (>56); GLUCOSE, FASTING 91 MG/DL (70-100); PHOSPHORUS LEVEL 3.2 MG/DL (2.5-4.9); SODIUM LEVEL 140 MEQ/L (136-145); TOTAL PROTEIN 7.4 GM/DL (6.4-8.2)
[2021-06-15 14:38] LABS: PTH INTACT 54.5 PG/ML (18.5-88.0); TOTAL 25(OH) VITAMIN D 44.6 NG/ML (30.0-100.0)
[2021-06-15 14:39] LABS: HEPATITIS B SURFACE ANTIBODY NEGATIVE (POSITIVE)
[2021-06-15 14:49] LABS: HEPATITIS B SURFACE ANTIGEN NEGATIVE (NEGATIVE)
[2021-06-15 15:19] LABS: HEPATITIS A ANTIBODY IGM NEGATIVE (NEGATIVE)
== END ==
LOC: M PLALAB 11:34
PROVIDERS: ATTEND Physician Assistant Medical
DX: E83.52 Hypercalcemia (principal); I10 Essential (primary) hypertension; R79.89 Other specified abnormal findings of blood chemistry; E11.9 Type 2 diabetes mellitus without complications; Z86.19 Personal history of other infectious and parasitic diseases

== ENCOUNTER → 2021-07-11 | Outpatient (CLI) | payer SELFPAY ==
[~2021-07-11] MED LIST changes: +ATOR40TA75 PO
--- NOTE | 2021-07-13 04:01 | REPVR ---
PROCEDURE INFORMATION: Exam: CT Head without Contrast Exam date and time: 07/11/2021 (10:46am) Age: 60 years old Clinical indication: Cerebral hemorrhage TECHNIQUE: Imaging protocol: Computed tomography of the head without contrast Radiation optimization: All CT scans at this facility use at least one of these dose optimization techniques: automated exposure control; mA and/or kV adjustment per patient size (includes targeted exams where dose is matched to clinical indication); or iterative reconstruction. COMPARISON: CT HEAD of 06/19/21 FINDINGS: Comparison is made with CT scan done approx. 3 weeks ago. 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 Previously noted hemorrhage appears to have resolved. No new areas of hemorrhage are seen. Some underlying atrophy again noted. No midline shift. Mild bilateral ethmoid sinus mucosal thickening. IMPRESSION: Continued evolution of right occipital infarct. No hyperdense hemorrhage noted at this time. No new areas of hemorrhage are seen. See additional comments above. Electronically signed by: Alis Green On 07/13/2021 04:00:48 AM
== END ==
LOC: M PLAIMG 10:28
PROVIDERS: ATTEND Physician Assistant Medical
DX: I61.9 Nontraumatic intracerebral hemorrhage, unspecified (principal); L57.0 Actinic keratosis

== ENCOUNTER → 2022-12-22 | Outpatient (REF) | payer SELFPAY ==
[~2022-12-22] MED LIST changes: +LOSA25TA13 PO; -LOSA25TA14 PO
[2022-12-22 18:02] LABS: BASO # 0.1 10^3/uL (0.0-0.2); BASO % 0.7 % (0.0-1.0); EOS # 0.2 10^3/uL (0.0-0.5); EOS % 2.1 % (0.0-3.0); HEMATOCRIT 42.4 % (42.0-52.0); HEMOGLOBIN 14.5 g/dl (13.5-17.5); LYMPH # 2.7 10^3/uL (1.5-5.0); LYMPH % 30.3 % (24.0-44.0); MEAN CORPUSCULAR HEMOGLOBIN 31.8 pg (27.0-33.0); MEAN CORPUSCULAR HGB CONC 34.2 g/dl (32.0-36.5); MONO # 0.6 10^3/uL (0.0-0.8); MONO % 6.7 % (2.0-8.0); NEUTROPHILS # 5.3 10^3/uL (1.5-8.5); PLATELET COUNT, AUTOMATED 199 10^3/uL (150-450); RED BLOOD COUNT 4.56 10^6/uL (4.30-6.10); WHITE BLOOD COUNT 8.8 10^3/uL (4.0-10.0)
[2022-12-22 18:12] LABS: HEMOGLOBIN A1c 8.5 % (4.0-6.0)
[2022-12-22 18:32] LABS: ALBUMIN 3.9 G/DL (3.2-5.2); ALKALINE PHOSPHATASE 71 U/L (46-116); ALT/SGPT 52 U/L (7.0-40); AST/SGOT 37 U/L (<34); BILIRUBIN,TOTAL 0.8 MG/DL (0.3-1.2); BLOOD UREA NITROGEN 15 MG/DL (9-23); CALCIUM LEVEL 9.8 MG/DL (8.3-10.6); CARBON DIOXIDE LEVEL 27 MMOL/L (20-31); CHLORIDE LEVEL 104 MMOL/L (98-107); CHOLESTEROL LEVEL 161 MG/DL (<200); CHOLESTEROL RISK RATIO 3.94 (<5); CREATININE FOR GFR 0.85 MG/DL (0.70-1.30); GLOMERULAR FILTRATION RATE > 60.0 (>49); GLUCOSE, FASTING 112 MG/DL (74-106); HDL CHOLESTEROL 40.8 MG/DL (>40); LDL CHOLESTEROL 82.6 MG/DL (<100); NON-HDL-C 120.2 MG/DL; POTASSIUM SERUM 4.7 MMOL/L (3.5-5.1); SODIUM LEVEL 141 MMOL/L (136-145); TOTAL PROTEIN 7.1 G/DL (5.7-8.2); TRIGLYCERIDES LEVEL 188 MG/DL (<150)
== END ==
LOC: M LABWUC 17:28
PROVIDERS: ATTEND Physician Assistant Medical
DX: Z13.220 Encounter for screening for lipoid disorders (principal); Z12.5 Encounter for screening for malignant neoplasm of prostate; I10 Essential (primary) hypertension; E11.9 Type 2 diabetes mellitus without complications
CPT/HCPCS: 36415; 80053; 80061; 83036; 85025; G0103

== ENCOUNTER → 2023-04-02 | Outpatient (CLI) | payer SELFPAY ==
[2023-04-02 11:58] LABS: HEMOGLOBIN A1c 8.3 % (4.0-6.0)
== END ==
LOC: M PLALAB 08:32
PROVIDERS: ATTEND Physician Assistant Medical
DX: R73.01 Impaired fasting glucose (principal)

== ENCOUNTER → 2023-11-12 | Outpatient (CLI) | payer SELFPAY ==
[2023-11-12 11:48] LABS: BASO % 0.6 % (0.0-1.0); EOS # 0.2 10^3/uL (0.0-0.5); EOS % 3.4 % (0.0-3.0); HEMATOCRIT 41.2 % (42.0-52.0); HEMOGLOBIN 14.4 g/dl (13.5-17.5); LYMPH # 2.2 10^3/uL (1.5-5.0); LYMPH % 32.1 % (24.0-44.0); MEAN CORPUSCULAR HEMOGLOBIN 31.9 pg (27.0-33.0); MEAN CORPUSCULAR VOLUME 91.2 fl (80.0-96.0); MONO # 0.5 10^3/uL (0.0-0.8); MONO % 6.9 % (2.0-8.0); NEUTROPHILS # 3.9 10^3/uL (1.5-8.5); NEUTROPHILS % 56.7 % (36.0-66.0); PLATELET COUNT, AUTOMATED 181 10^3/uL (150-450); RED BLOOD COUNT 4.52 10^6/uL (4.30-6.10); WHITE BLOOD COUNT 6.8 10^3/uL (4.0-10.0)
[2023-11-12 12:11] LABS: PSA SCREENING 1.53 NG/ML (< 4.00)
[2023-11-12 12:16] LABS: ALBUMIN 3.8 G/DL (3.2-5.2); ALKALINE PHOSPHATASE 60 U/L (46-116); ALT/SGPT 47 U/L (7.0-40); AST/SGOT 26 U/L (<34); BILIRUBIN,TOTAL 0.8 MG/DL (0.3-1.2); BLOOD UREA NITROGEN 17 MG/DL (9-23); CARBON DIOXIDE LEVEL 28 MMOL/L (20-31); CHLORIDE LEVEL 107 MMOL/L (98-107); CHOLESTEROL LEVEL 147 MG/DL (<200); CREATININE FOR GFR 0.83 MG/DL (0.70-1.30); GLOMERULAR FILTRATION RATE > 60.0 (>49); GLUCOSE, FASTING 187 MG/DL (74-106); HDL CHOLESTEROL 35.8 MG/DL (>40); NON-HDL-C 111.2 MG/DL; POTASSIUM SERUM 4.7 MMOL/L (3.5-5.1); SODIUM LEVEL 141 MMOL/L (136-145); TOTAL PROTEIN 6.7 G/DL (5.7-8.2); TRIGLYCERIDES LEVEL 241 MG/DL (<150)
[2023-11-12 12:27] LABS: HEMOGLOBIN A1c 9.1 % (4.0-6.0)
== END ==
LOC: M WUC 10:14
PROVIDERS: ATTEND Physician Assistant Medical
DX: Z12.5 Encounter for screening for malignant neoplasm of prostate (principal)

== ENCOUNTER → 2024-09-08 | Outpatient (CLI) | payer SELFPAY ==
[2024-09-08 13:39] LABS: BASO # 0.1 10^3/uL (0.0-0.2); BASO % 0.8 % (0.0-1.0); EOS # 0.2 10^3/uL (0.0-0.5); EOS % 3.8 % (0.0-3.0); HEMATOCRIT 43.5 % (42.0-52.0); HEMOGLOBIN 14.8 g/dl (13.5-17.5); LYMPH % 32.1 % (24.0-44.0); MONO # 0.4 10^3/uL (0.0-0.8); MONO % 6.4 % (2.0-8.0); NEUTROPHILS # 3.5 10^3/uL (1.5-8.5); NEUTROPHILS % 56.7 % (36.0-66.0); PLATELET COUNT, AUTOMATED 173 10^3/uL (150-450); RED BLOOD COUNT 4.78 10^6/uL (4.30-6.10); WHITE BLOOD COUNT 6.1 10^3/uL (4.0-10.0)
[2024-09-08 14:06] LABS: PSA SCREENING 2.29 NG/ML (< 4.00)
[2024-09-08 14:09] LABS: ALBUMIN 3.8 G/DL (3.2-5.2); ALKALINE PHOSPHATASE 59 U/L (40-129); ALT/SGPT 22 U/L (7.0-40); AST/SGOT 14 U/L (<34); BILIRUBIN,TOTAL 0.8 MG/DL (0.3-1.2); BLOOD UREA NITROGEN 22 MG/DL (9-23); CALCIUM LEVEL 9.8 MG/DL (8.3-10.6); CARBON DIOXIDE LEVEL 28 MMOL/L (20-31); CHLORIDE LEVEL 106 MMOL/L (98-107); CHOLESTEROL LEVEL 166 MG/DL (<200); CHOLESTEROL RISK RATIO 3.54 (<5); CREATININE FOR GFR 0.84 MG/DL (0.70-1.30); GLOMERULAR FILTRATION RATE > 60.0 (>49); GLUCOSE, FASTING 105 MG/DL (74-106); HDL CHOLESTEROL 46.8 MG/DL (>40); LDL CHOLESTEROL 95.6 MG/DL (<100); NON-HDL-C 119.2 MG/DL; POTASSIUM SERUM 4.7 MMOL/L (3.5-5.1); SODIUM LEVEL 143 MMOL/L (136-145); TRIGLYCERIDES LEVEL 118 MG/DL (<150)
[2024-09-08 14:30] LABS: HEMOGLOBIN A1c 5.6 % (4.0-6.0)
== END ==
LOC: M WUC 11:11
PROVIDERS: ATTEND Physician Assistant Medical
DX: I10 Essential (primary) hypertension (principal); R73.01 Impaired fasting glucose; E78.2 Mixed hyperlipidemia